=== PATIENT | female | born 1945 | race Caucasian/White ===

== ENCOUNTER 2020-10-06 06:58 | Outpatient (REF) | payer MEDICARE, SELFPAY ==
[2020-10-06 11:49] LABS: Hematocrit 44.3 % (37-47); Hemoglobin 14.4 g/dl (12.0-16.0); Mean Corpuscular HGB Conc 32.5 g/dl (31.0-35.0); Mean Corpuscular Hemoglobin 29.9 pg (27.0-33.0); Mean Corpuscular Volume 92.1 fL (80-98); Mean Platelet Volume 9.1 fL (9.4-12.3); Platelet Count 244 X10*3/uL (160-400); Red Blood Count 4.81 X10*6/uL (4.20-5.50); Red Cell Distribution Width 12.6 % (11.0-16.0)
[2020-10-06 12:20] LABS: Alanine Aminotransferase 9 U/L (0-31); Alkaline Phosphatase 82 U/L (39-117); Anion Gap 13 (12-20); Aspartate Amino Transferase 12 U/L (5-31); Bilirubin Total 0.4 mg/dL (0.0-1.0); Blood Urea Nitrogen 15 mg/dL (9-16); Calcium 8.9 mg/dL (8.4-10.2); Carbon Dioxide 30 mmol/L (22-29); Chloride 105 mmol/L (96-108); Estimated Glomerular Filt Rate > 60; Glucose Fasting 92 mg/dL (60-99); Potassium 4.5 mmol/l (3.3-5.1); Sodium 143 mmol/L (135-145); Total Protein 6.3 g/dL (6.5-8.0)
[2020-10-06 12:29] LABS: Thyroid Stimulating Hormone 0.38 uIU/mL (0.32-4.0)
[2020-10-06 12:41] LABS: Cholesterol 216 mg/dL; HDL Cholesterol 85 mg/dL; LDL Cholesterol Calculated 111 mg/dl; Triglycerides 101 mg/dL
== END 2020-10-06 06:59 | disposition home or self-care (01) ==
LOC: HO.HMGCLDS 06:58
PROVIDERS: PCP Internal Medicine; Visit Provider Internal Medicine
DX: I63.9 Cerebral infarction, unspecified (principal); E78.5 Hyperlipidemia, unspecified; H35.30 Unspecified macular degeneration
CPT/HCPCS: 36415; 80053; 80061; 84443; 85027

== ENCOUNTER → 2020-10-29 11:34 | Outpatient (BNVA) | payer MEDICARE, SELFPAY | PROVIDERS: PCP Internal Medicine; Referring Provider Internal Medicine; Visit Provider Student in an Organized Health Care Education/Training Program | DX: M25.50 Pain in unspecified joint (principal); T85.192A Other mechanical complication of implanted electronic neurostimulator of spinal cord electrode (lead), initial encounter | CPT/HCPCS: Q3014 ==

== ENCOUNTER 2020-12-19 07:35 | Outpatient (REF) | payer MEDICARE, SELFPAY ==
[2020-12-19 11:45] LABS: Hematocrit 43.1 % (37-47); Mean Corpuscular HGB Conc 32.5 g/dl (31.0-35.0); Mean Corpuscular Hemoglobin 29.7 pg (27.0-33.0); Mean Corpuscular Volume 91.3 fL (80-98); Mean Platelet Volume 9.5 fL (9.4-12.3); Platelet Count 260 X10*3/uL (160-400); Red Blood Count 4.72 X10*6/uL (4.20-5.50); Red Cell Distribution Width 12.6 % (11.0-16.0); White Blood Count 4.7 X10*3/uL (4.8-10.8)
[2020-12-19 11:46] LABS: Prothrombin Time 11.3 SEC (10.8-13.0)
[2020-12-19 11:49] LABS: Partial Thromboplastin Time 36.1 SEC (24.1-38.0)
[2020-12-19 11:53] LABS: Anion Gap 12 (12-20); Blood Urea Nitrogen 14 mg/dL (9-16); Carbon Dioxide 30 mmol/L (22-29); Chloride 106 mmol/L (96-108); Estimated Glomerular Filt Rate > 60; Glucose Random 102 mg/dL (60-115); Potassium 4.3 mmol/l (3.3-5.1); Sodium 144 mmol/L (135-145)
== END 2020-12-19 07:36 | disposition home or self-care (01) ==
LOC: HO.HMGCLDS 07:35
PROVIDERS: PCP Internal Medicine; Visit Provider Internal Medicine
DX: T85.192A Other mechanical complication of implanted electronic neurostimulator of spinal cord electrode (lead), initial encounter (principal)
CPT/HCPCS: 36415; 80048; 85027; 85610; 85730

== ENCOUNTER → 2021-01-19 07:44 | Outpatient (BNVA) | payer MEDICARE, SELFPAY | PROVIDERS: PCP Internal Medicine; Visit Provider Physician Assistant | CPT/HCPCS: Q3014 ==

== ENCOUNTER 2021-02-19 09:51 | Day surgery (SDC) | payer MEDICARE, SELFPAY ==
[2021-02-13 11:06] VITALS: BMI 23.8
--- NOTE | 2021-02-18 11:47 | P.CONAN_ITS ---
Documented by User: Marlena Jin 02/18/21 11:54 HPI - Anesthesia Eval Consult details Narrative: 75yo F for Colonoscopy PMFSH Active Problems Active Problems: All Active Problems (Updated 02/13/21 @ 11:09 by Milena Andrews) Polyarthralgia (Acute) Spinal cord stimulator dysfunction (Acute) Current use of jail anticoagulation (Acute) Chronic constipation (Acute) Rectal bleed (Acute) CVA (cerebral vascular accident) (Acute) Hyperlipidemia (Acute) Macular degeneration (Acute) Eye exam abnormal (Acute) Past Medical History Medical History (Updated 02/19/21 @ 11:18 by Norma Mark) Chronic constipation COPD (chronic obstructive pulmonary disease) COVID-19 vaccine administered CVA (cerebral vascular accident) Eye exam abnormal Goiter, nodular History of hiatal hernia Hyperlipidemia Macular degeneration Microscopic hematuria Nephrolithiasis Osteopenia Rectal bleed Spinal stenosis Upper extremity weakness Family History Family History Father History of heart attack Stroke Mother Stroke Diabetes mellitus Maternal Grandmother Diabetes mellitus Maternal Grandfather Diabetes mellitus Surgical History Surgical History H/O colonoscopy History of bladder suspension procedure History of hysterectomy History of repair of hiatal hernia Hx of cholecystectomy S/P insertion of spinal cord stimulator Social History Social History Household Members: Sp[facility] Are you a primary care trainer to a significant other at home: No Do you presently have visiting nurse or other home services: No Alcohol intake: never Smoking Status: Former smoker Tobacco Type: Cigarette Smoking Quit Date: 1985 Use of substances other than those prescribed or required for medical reasons: No Have you been hit, kicked, punched, or otherwise hurt by someone within the past year? If so, by whom?: No Advance Directives Information Provided: No Recently lost weight without trying: No Current occupational status: retired Meds Allergies Allergy/AdvReac Type Severity Reaction Status Date / Time acetaminophen [From Tylenol] Allergy Severe ANAPHYLAXIS Verified 02/13/21 11:13 gabapentin [GABAPENTIN] Allergy Severe ANAPHYLAXIS Verified 01/19/21 07:45 levofloxacin [From Levaquin] Allergy Severe ANAPHYLAXIS Verified 02/13/21 11:13 Penicillins Allergy Severe ANAPHYLAXIS Verified 02/13/21 11:13 tetracycline [Tetracycline] Allergy Severe ANAPHYLAXIS Verified 02/13/21 11:13 vancomycin [Vancomycin] AdvReac Severe Anaphylaxis Verified 01/19/21 07:45 Home Medications Medication Instructions Recorded Confirmed Last Taken Type flu vacc (63yr IM 10/03/20 01/19/21 Unknown History up)-MF59C(PF) 60 mcg(15 mcgx4)/0.5 mL IM syringe prednisolone acetate 1 % eye drp OPHTHALMIC (EYE) 10/03/20 01/19/21 Unknown History drops,suspension mexiletine 150 mg PO BID 02/13/21 02/13/21 Unknown History Exam Exam Date and Time: February 18, 2021 1147 Height,Weight and Vital Signs: Height 5 ft 2 in Weight 58.967 kg Pertinent Lab Results Pertinent Lab Results: Laboratory Tests 12/19/20 12/19/20 07:40 07:40 WBC 4.7 L Hgb 14.0 Hct 43.1 Plt Count 260 Sodium 144 Potassium 4.3 Chloride 106 Carbon Dioxide 30 H BUN 14 Creatinine 0.68 Assessment and Plan Assessment Anesthesia Assessment: Chart Reviewed Documented by User: Norma Mark 02/19/21 11:57 PMFSH Past Medical History Medical History (Updated 02/19/21 @ 11:18 by Norma Mark) Chronic constipation COPD (chronic obstructive pulmonary disease) COVID-19 vaccine administered CVA (cerebral vascular accident) Eye exam abnormal Goiter, nodular History of hiatal hernia Hyperlipidemia Macular degeneration Microscopic hematuria Nephrolithiasis Osteopenia Rectal bleed Spinal stenosis Upper extremity weakness Family History Family History Father History of heart attack Stroke Mother Stroke Diabetes mellitus Maternal Grandmother Diabetes mellitus Maternal Grandfather Diabetes mellitus Family history of problems with anesthesia: No Surgical History Surgical History H/O colonoscopy History of bladder suspension procedure History of hysterectomy History of repair of hiatal hernia Hx of cholecystectomy S/P insertion of spinal cord stimulator History of Problems with Anesthesia: No Social History Social History Household Members: [facility] Are you a primary care trainer to a significant other at home: No Do you presently have visiting nurse or other home services: No Alcohol intake: never Smoking Status: Former smoker Tobacco Type: Cigarette Smoking Quit Date: 1985 Use of substances other than those prescribed or required for medical reasons: No Have you been hit, kicked, punched, or otherwise hurt by someone within the past year? If so, by whom?: No Advance Directives Information Provided: No Recently lost weight without trying: No Current occupational status: retired Meds Allergies Allergy/AdvReac Type Severity Reaction Status Date / Time acetaminophen [From Tylenol] Allergy Severe ANAPHYLAXIS Verified 02/13/21 11:13 gabapentin [GABAPENTIN] Allergy Severe ANAPHYLAXIS Verified 01/19/21 07:45 levofloxacin [From Levaquin] Allergy Severe ANAPHYLAXIS Verified 02/13/21 11:13 Penicillins Allergy Severe ANAPHYLAXIS Verified 02/13/21 11:13 tetracycline [Tetracycline] Allergy Severe ANAPHYLAXIS Verified 02/13/21 11:13 vancomycin [Vancomycin] AdvReac Severe Anaphylaxis Verified 01/19/21 07:45 Home Medications Medication Instructions Recorded Confirmed Last Taken Type flu vacc (63yr IM 10/03/20 01/19/21 Unknown History up)-MF59C(PF) 60 mcg(15 mcgx4)/0.5 mL IM syringe prednisolone acetate 1 % eye drp OPHTHALMIC (EYE) 10/03/20 01/19/21 Unknown History drops,suspension mexiletine 150 mg PO BID 02/13/21 02/13/21 Unknown History Exam Height,Weight and Vital Signs: Vital Signs Temp Pulse Resp BP Pulse Ox 02/19/21 10:57 97.7 F 73 16 147/72 H 99 Airway Mallampati Class: I TM Dist: >3cm Neck ROM: Limited (Stiffness) Denture: Upper Loose/Missing/Broken Teeth: Yes (Only few teeth bottom) Heart: RRR Lungs: CTAB Assessment and Plan Assessment Anesthesia Assessment: Anesthesia Plan Discussed and Chart Reviewed Final Anesthetic Review NPO: Yes ASA Class: III Final Preanesthetic Review: No Changes in Pt Med Stat, Meds/Allgs Chart Reviewed, Consent Obtained/Reviewed and Anes Risks/Benef Reviewed Patient Risk: Intermediate Procedure Risk: Low Assessment/Block/Sedation in SS: Assess/Block/Sedation-SS Anesthetic Plan Anesthetic Plan: MAC: Disposition: Standard PACU
[2021-02-19 10:57] VITALS: BP 147/72; PULSE 73; RESP 16; TEMP 36.5; O2SAT 99
[2021-02-19] MEDS: Lactated Ringers 1,000 ML 100 ML IVCONT (11:02)
--- NOTE | 2021-02-19 11:31 | MHC.SHP ---
Pre-Procedural Eval Section B Chief Complaint: bleeding Details of Present Illness: Rectal bleeding, constipation (?rectocoele) Relevant Family History (Specify if Yes): No Relevant Social History: None Present Medications: see Short Stay Collaborative assessment Medical History: Significant History (CVA, Nodular goiter, Spinal stenosis) History of Previous Operations: Relevant previous surgery/procedure and date(s) (Hysterectomy, cholecystectomy, bladder suspension, colo's polyps) Allergies: Allergies Allergy/AdvReac Type Severity Reaction Status Date / Time acetaminophen [From Tylenol] Allergy Severe ANAPHYLAXIS Verified 02/13/21 11:13 gabapentin [GABAPENTIN] Allergy Severe ANAPHYLAXIS Verified 01/19/21 07:45 levofloxacin [From Levaquin] Allergy Severe ANAPHYLAXIS Verified 02/13/21 11:13 Penicillins Allergy Severe ANAPHYLAXIS Verified 02/13/21 11:13 tetracycline [Tetracycline] Allergy Severe ANAPHYLAXIS Verified 02/13/21 11:13 vancomycin [Vancomycin] AdvReac Severe Anaphylaxis Verified 01/19/21 07:45 Review of Systems Sugical H&P ROS: Negative: Constitution, Cardiovascular, Respiratory and Gastrointestinal and Yes, Specify: Neurological (HX of CVA) Exam Surgical H&P Exam: Normal: Heart, Normal: Lungs, Normal: Extremities and Normal: Abdomen, Not Evaluated: HEENT and Significant Findings: Neurological (right arm full ROM, equal temp) Plan Diagnosis/Plan: Unchanged I have reviewed the history and physical and performed a pertinent physical examination on my patient. No changes have occurred unless specified.yes
[2021-02-19 12:05] VITALS: BP 103/59; PULSE 67; RESP 16; TEMP 36.4; O2SAT 96
--- NOTE | 2021-02-19 12:06 | PM.OP ---
Brief Operative Note Date of Service: 02/19/21 Pre-op diagnosis: Rectal bleeding,colon cancer screening Post-op diagnosis: other (Rectocoele, Internal hemorrhoids, Diverticulosis.) Procedure: COLONOSCOPY Implants: NONE Surgeon: Savannah Torres MD Anesthesia: MAC (HORACIO MARTINO) Estimated blood loss (mL): 0 Pathology: none sent Disposition: PACU
[2021-02-19 12:20] VITALS: BP 107/50; PULSE 58; RESP 17; O2SAT 99
[2021-02-19 12:35] VITALS: BP 120/57; PULSE 56; RESP 17; TEMP 36.4; O2SAT 100
--- NOTE | 2021-02-19 13:20 | W.PM.OPN ---
Operative Note Operative Note Date of Service: 02/19/21 Narrative: Pre-op diagnosis: Rectal bleeding,colon cancer screening Post-op diagnosis: other (Rectocoele, Internal hemorrhoids, Diverticulosis.) Procedure: COLONOSCOPY Implants: NONE Surgeon: Savannah Torres MD Anesthesia: MAC (HORACIO MARTINO) FINDINGS: BARBARA: DECREASED SPHINCTER TONE;RECTOCOELE Adult slim colonoscope introduced without difficulty. Angulation@ rectosigmoid with some divertculi--made for slow movement thru this area and rest of sigmoid. Further navigation through descending, transverse, ascending colon into the cecum. Appendiceal orifice and ileocecal valve was well seen-no mucosal abnormalities were appreciated. PREP: Excellent Slow withdrawal of scope, good rotational views. no significant lesions seen. ARV clear. 1+Internal hemorrhoids were noted. Estimated blood loss (mL): 0 Pathology: none sent Disposition: PACU PLAN: Repeat asymptomatic screening in this age range is debatable. She would benefit from followup visit to review management options for her rectocoele. (I had discussed this with her briefly preprocedure.)
== END 2021-02-19 13:19 | disposition home or self-care (01) ==
PROVIDERS: PCP Internal Medicine; Visit Provider Internal Medicine Gastroenterology
PROC: 0DJD8ZZ Inspection of Lower Intestinal Tract, Via Natural or Artificial Opening Endoscopic (ICD-10-PCS; CPT 45378; principal; 2021-02-19 11:10)
DX: K62.5 Hemorrhage of anus and rectum (principal); N81.6 Rectocele; K57.30 Diverticulosis of large intestine without perforation or abscess without bleeding; K64.8 Other hemorrhoids; K62.89 Other specified diseases of anus and rectum; K59.09 Other constipation; Z79.899 Other long term (current) drug therapy; Z86.73 Personal history of transient ischemic attack (TIA), and cerebral infarction without residual deficits; Z88.0 Allergy status to penicillin; Z88.1 Allergy status to other antibiotic agents; Z88.8 Allergy status to other drugs, medicaments and biological substances
CPT/HCPCS: 45378

== ENCOUNTER 2021-02-26 14:40 | Outpatient (REF) | payer MEDICARE, SELFPAY ==
--- NOTE | ~2021-02-26 | CT_ITS ---
EXAMINATION: CT HEAD WITHOUT CONTRAST CLINICAL INFORMATION: Transient cerebral ischemic attack. COMPARISON: CT dated 10/12/2019. TECHNIQUE: Contiguous axial imaging was performed from the skull base to vertex without intravenous administration of contrast. This CT examination was performed using dose optimization techniques as appropriate, variously including the following: *Automated exposure control *Adjustment of mA and/or kV according to patient size (this includes techniques or standardized protocols for targeted exams where dose is matched to indication/reason for exam; i.e. extremities or head) *Use of iterative reconstruction technique DLP: 558 mGy-cm FINDINGS: There is no evidence of acute intracranial hemorrhage or territorial infarction. No abnormal mass effect or midline shift is seen. Clifford to white matter differentiation is well preserved. No extra-axial fluid collections are identified. The ventricles are normal in size. There is no abnormal attenuation within the brain parenchyma. The osseous structures and soft tissues are normal. The mastoid air cells and visualized portions of the paranasal sinuses are well aerated. CT/CT head/brain wo con IMPRESSION: No acute intracranial pathology.
--- NOTE | ~2021-02-26 | US_ITS ---
EXAMINATION: US EXTRACRANIAL CAROTID DUPLEX, BILATERAL CLINICAL INFORMATION: TIA. COMPARISON: None. TECHNIQUE: Real-time ultrasound and Doppler techniques (integrating B-mode 2-D vascular images, Doppler spectral analysis and color-flow Doppler imaging) were utilized to interrogate the extracranial carotid arteries, the vertebral arteries and proximal subclavian arteries bilaterally. The degree of stenosis is determined by criteria similar to NASCET. FINDINGS: Right Side: 1. There is hard atherosclerotic plaque seen in the bifurcation/proximal ICA region. 2. The common carotid artery PSV proximally is 91.5 cm/s and distally 67.6 cm/s. 3. The proximal internal carotid artery velocities are 62.5 cm/s systolic and 11.8 cm/s diastolic. 4. The proximal external carotid artery PSV is 70.9 cm/s. 5. The vertebral artery shows 55 flow. 6. The subclavian artery waveforms are normal. Left Side: 1. There is hard atherosclerotic plaque seen in the bifurcation/proximal ICA region. 2. The common carotid artery PSV proximally is 79 cm/s and distally 67.2 cm/s. 3. The proximal internal carotid artery velocities are 72.7 cm/s systolic and 14.5 cm/s diastolic. 4. The proximal external carotid artery PSV is 72.3 cm/s. 5. The vertebral artery shows 49.1 flow. 6. The subclavian artery waveforms are normal. US/US carotid duplex BI IMPRESSION: 1. RIGHT: 0-49% range stenosis. 2. LEFT: 0-49% range stenosis. 3. Normal antegrade flow is seen in both vertebral arteries.
== END 2021-02-26 14:41 | disposition home or self-care (01) ==
LOC: HO.CT 14:40
PROVIDERS: Visit Provider Internal Medicine
DX: G45.9 Transient cerebral ischemic attack, unspecified (principal)
CPT/HCPCS: 70450; 93880; Q3014

== ENCOUNTER 2021-06-03 08:36 | Outpatient (REF) | payer MEDICARE, SELFPAY ==
[2021-06-03 12:04] LABS: Hematocrit 43.7 % (37-47); Hemoglobin 14.6 g/dl (12.0-16.0); Mean Corpuscular HGB Conc 33.4 g/dl (31.0-35.0); Mean Corpuscular Hemoglobin 30.4 pg (27.0-33.0); Mean Corpuscular Volume 90.9 fL (80-98); Mean Platelet Volume 9.2 fL (9.4-12.3); Platelet Count 249 X10*3/uL (160-400); Red Blood Count 4.81 X10*6/uL (4.20-5.50); Red Cell Distribution Width 12.5 % (11.0-16.0)
[2021-06-03 12:21] LABS: Alanine Aminotransferase 9 U/L (0-31); Albumin Level 4.2 g/dL (3.5-5.0); Alkaline Phosphatase 91 U/L (39-117); Anion Gap 14 (12-20); Aspartate Amino Transferase 13 U/L (5-31); Bilirubin Total 0.3 mg/dL (0.0-1.0); Blood Urea Nitrogen 11 mg/dL (9-16); Calcium 9.8 mg/dL (8.4-10.2); Carbon Dioxide 27 mmol/L (22-29); Chloride 105 mmol/L (96-108); Cholesterol 225 mg/dL; Estimated Glomerular Filt Rate > 60; Glucose Fasting 118 mg/dL (60-99); HDL Cholesterol 92 mg/dL; LDL Cholesterol Calculated 114 mg/dl; Potassium 4.4 mmol/L (3.3-5.1); Sodium 142 mmol/L (135-145); Total Protein 6.6 g/dL (6.5-8.0); Triglycerides 96 mg/dL
== END 2021-06-03 08:37 | disposition home or self-care (01) ==
LOC: HO.HMGCLDS 08:36
PROVIDERS: PCP Internal Medicine; Visit Provider Internal Medicine
DX: E78.5 Hyperlipidemia, unspecified (principal)
CPT/HCPCS: 36415; 80053; 80061; 85027

== ENCOUNTER 2021-07-17 07:44 | Outpatient (REF) | payer MEDICARE, SELFPAY ==
--- NOTE | ~2021-07-17 | MM_ITS ---
EXAMINATION: MM SCREENING DIGITAL BREAST TOMOSYNTHESIS, BILATERAL CLINICAL INFORMATION: Screening. Asymptomatic. The lifetime risk of breast cancer based on the Tyrer-Cuzick Model is 3%. COMPARISON: Mammography: 07/11/2020, outside mammography from [facility] dated 12/28/2017, 12/23/2016. TECHNIQUE: Digital breast tomosynthesis is performed in both the craniocaudal and mediolateral oblique views along with computer-aided detection (CAD). Synthesized 2D images are generated from the tomosynthesis. Additional bilateral CC views are provided. FINDINGS: The breasts are almost entirely fatty (ACR BI-RADS breast composition Category a). There are no significant masses, abnormal calcifications, or other abnormalities. Background stromal markings are stable. No developing density. The axilla and skin contours are unremarkable. MM/MM tomosynthesis screening BI IMPRESSION: No mammographic evidence of malignancy. ASSESSMENT: BI-RADS 1: Negative RECOMMENDATION: Routine annual mammography screening. This patient's information was entered into a reminder system with a target due date for their next mammogram.
== END 2021-07-17 07:45 | disposition home or self-care (01) ==
LOC: HO.MAMMO 07:44
PROVIDERS: PCP Internal Medicine; Visit Provider Internal Medicine
DX: Z12.31 Encounter for screening mammogram for malignant neoplasm of breast (principal)
CPT/HCPCS: 77063; 77067

== ENCOUNTER 2021-09-03 06:27 | Outpatient (REF) | payer MEDICARE, SELFPAY ==
[2021-09-03 12:19] LABS: Alanine Aminotransferase 13 U/L (0-31); Albumin Level 3.9 g/dL (3.5-5.0); Alkaline Phosphatase 96 U/L (39-117); Anion Gap 12 (12-20); Aspartate Amino Transferase 13 U/L (5-31); Bilirubin Total < 0.2 mg/dL (0.0-1.0); Blood Urea Nitrogen 17 mg/dL (9-16); Calcium 9.2 mg/dL (8.4-10.2); Carbon Dioxide 27 mmol/L (22-29); Chloride 108 mmol/L (96-108); Cholesterol 153 mg/dL; Estimated Glomerular Filt Rate > 60; Glucose Fasting 110 mg/dL (60-99); HDL Cholesterol 71 mg/dL; LDL Cholesterol Calculated 70 mg/dl; Potassium 4.2 mmol/L (3.3-5.1); Sodium 143 mmol/L (135-145); Total Protein 5.9 g/dL (6.5-8.0); Triglycerides 60 mg/dL
== END 2021-09-03 06:28 | disposition home or self-care (01) ==
LOC: HO.HMGCLDS 06:27
PROVIDERS: PCP Internal Medicine; Visit Provider Internal Medicine
DX: E78.5 Hyperlipidemia, unspecified (principal); M25.50 Pain in unspecified joint
CPT/HCPCS: 36415; 80053; 80061

== ENCOUNTER 2022-02-03 10:47 | Outpatient (REF) | payer MEDICARE, SELFPAY ==
[2022-02-03 11:53] LABS: Estimated Average Glucose 120 mg/dL; Hemoglobin A1c % 5.8 %
[2022-02-03 12:15] LABS: Alanine Aminotransferase 13 U/L (0-31); Albumin Level 4.2 g/dL (3.5-5.0); Alkaline Phosphatase 92 U/L (39-117); Anion Gap 13 (12-20); Aspartate Amino Transferase 13 U/L (5-31); Bilirubin Total 0.5 mg/dL (0.0-1.0); Blood Urea Nitrogen 15 mg/dL (9-16); Calcium 9.9 mg/dL (8.4-10.2); Carbon Dioxide 28 mmol/L (22-29); Chloride 107 mmol/L (96-108); Cholesterol 172 mg/dL; Estimated Glomerular Filt Rate > 60; Glucose Fasting 92 mg/dL (60-99); HDL Cholesterol 81 mg/dL; LDL Cholesterol Calculated 79 mg/dl; Potassium 4.5 mmol/L (3.3-5.1); Sodium 143 mmol/L (135-145); Total Protein 6.4 g/dL (6.5-8.0); Triglycerides 62 mg/dL
[2022-02-03 12:29] LABS: Vitamin D 25-OH Total 14.3 ng/mL (>30)
== END 2022-02-03 10:48 | disposition home or self-care (01) ==
LOC: HO.HMGCLDS 10:47
PROVIDERS: Visit Provider Internal Medicine
DX: E78.5 Hyperlipidemia, unspecified (principal); E55.9 Vitamin D deficiency, unspecified
CPT/HCPCS: 36415; 80053; 80061; 82306; 83036

== ENCOUNTER 2022-03-10 08:20 | Outpatient (REF) | payer MEDICARE, SELFPAY ==
--- NOTE | ~2022-03-10 | MM_ITS ---
EXAMINATION: BONE DENSITOMETRY CLINICAL INDICATION: Menopause. COMPARISON: Baseline BD dated 05/25/2011. TECHNIQUE: Using a Dick [employer] DXA System (software version: 13.1) manufactured by [employer], dual-energy x-ray absorptiometry was performed of the lumbar spine and left hip. The images are of good technical quality. Summary results are attached. FINDINGS: AP SPINE L1-L4: Current: BMD 1.087 g/cm2, Z-score 1.3, T-score -0.8, normal, 3.1% increase from baseline (<5% change is not significant). Baseline: BMD 1.054 g/cm2. LEFT FEMUR, NECK: Current: BMD 0.666 g/cm2, Z-score -0.4, T-score -2.7, osteoporosis. Baseline: BMD 0.807 g/cm2. LEFT FEMUR, TOTAL: Current: BMD 0.588 g/cm2, Z-score -1.2, T-score -3.3, osteoporosis, 27.2% decrease from baseline (<5% change is not significant). Baseline: BMD 0.808 g/cm2. IDENTIFIED RISK FACTORS: Menopause, history of fracture (adult), rheumatoid arthritis, hysterectomy. HISTORY OF FRACTURE: Wrist. MEDICATIONS: None listed. MM/XR DEXA axial skeleton IMPRESSION: 1. DIAGNOSIS: Osteoporosis based on the lowest T-score value of -3.3 in the femur applying World Health Organization criteria. 2. 10-YEAR FRACTURE RISK PREDICTION, FRAX: According to the guidelines, FRAX calculation should only be performed on patients in the osteopenia bone density category. Therefore, FRAX was not performed on this patient. 3. Treatment Recommendations: NOF guidelines recommend consideration for treatment in postmenopausal women and men age 50 and older presenting with the following: -A hip or vertebral (clinical or morphometric) fracture. -T-score less than or equal to -2.5 at the femoral neck or spine after appropriate evaluation to exclude secondary causes. -Low bone mass at the hip or spine and a 10-year fracture probability by FRAX of greater than or equal to 3% for hip fracture or greater than or equal to 20% for major osteoporotic fracture based on the [place] adapted WHO algorithm. 4. Other Recommendations: All treatment decisions require clinical judgment and consideration of individual patient factors, including patient preferences, comorbidities, previous drug use, risk factors not captured in the FRAX model (e.g. frailty, falls, vitamin D deficiency, increased bone turnover, interval significant decline in bone density) and possible under or overestimation of fracture risk by FRAX. Additional medical evaluation for secondary cause of low bone mineral density may be appropriate. FUTURE SCAN RECOMMENDATION: People with diagnosed cases of osteoporosis or at high risk for fracture should have regular bone mineral density tests. For patients eligible for Medicare, routine testing is allowed once every 2 years. The testing frequency can be increased to one year for patients who have rapidly progressing disease, those who are receiving or discontinuing medical therapy to restore bone mass, or have additional risk factors.
== END 2022-03-10 08:21 | disposition home or self-care (01) ==
LOC: HO.MAMMO 08:20
PROVIDERS: PCP Internal Medicine; Visit Provider Internal Medicine
DX: Z13.820 Encounter for screening for osteoporosis (principal); Z78.0 Asymptomatic menopausal state; M81.0 Age-related osteoporosis without current pathological fracture
CPT/HCPCS: 77080; 77081

== ENCOUNTER 2022-06-24 12:28 | Outpatient (REF) | payer MEDICARE, SELFPAY | END 2022-06-24 12:29 | disposition home or self-care (01) | LOC: HO.HMGCLDS 12:28 | PROVIDERS: Visit Provider Internal Medicine | DX: Z13.89 Encounter for screening for other disorder (principal) ==

== ENCOUNTER 2022-07-21 07:17 | Outpatient (REF) | payer MEDICARE, SELFPAY ==
--- NOTE | ~2022-07-21 | MM_ITS ---
EXAMINATION: MM SCREENING DIGITAL BREAST TOMOSYNTHESIS, BILATERAL CLINICAL INFORMATION: Screening. Asymptomatic. The lifetime risk of breast cancer based on the Tyrer-Cuzick Model is 1.3%. COMPARISON: Mammography: July 17, 2021 and studies dating back to July 06, 2011 TECHNIQUE: Digital breast tomosynthesis is performed in both the craniocaudal and mediolateral oblique views along with computer-aided detection (CAD). Synthesized 2D images are generated from the tomosynthesis. FINDINGS: The breasts are almost entirely fatty (ACR BI-RADS breast composition Category a). There are no significant masses, abnormal calcifications, or other abnormalities. MM/MM tomosynthesis screening BI IMPRESSION: No significant changes from prior exam. ASSESSMENT: BI-RADS 1: Negative RECOMMENDATION: Routine annual mammography screening. This patient's information was entered into a reminder system with a target due date for their next mammogram.
== END 2022-07-21 07:18 | disposition home or self-care (01) ==
LOC: HO.MAMMO 07:17
PROVIDERS: Visit Provider Internal Medicine
DX: Z12.31 Encounter for screening mammogram for malignant neoplasm of breast (principal)
CPT/HCPCS: 77063; 77067

== ENCOUNTER 2022-08-03 09:47 | Outpatient (REF) | payer MEDICARE, SELFPAY ==
[2022-08-03 11:38] LABS: Hematocrit 41.5 % (37.0-47.0); Hemoglobin 13.7 g/dl (12.0-16.0); Mean Corpuscular Volume 90.8 fL (80.0-98.0); Mean Platelet Volume 9.3 fL (9.4-12.3); Platelet Count 241 X10*3/uL (160-400); Red Blood Count 4.57 X10*6/uL (4.20-5.50); Red Cell Distribution Width 12.5 % (11.0-16.0); White Blood Count 6.1 X10*3/uL (4.8-10.8)
[2022-08-03 11:47] LABS: Estimated Average Glucose 120 mg/dL; Hemoglobin A1c % 5.8 %
[2022-08-03 12:21] LABS: Alanine Aminotransferase 11 U/L (0-31); Alkaline Phosphatase 89 U/L (39-117); Anion Gap 18 (12-20); Aspartate Amino Transferase 13 U/L (5-31); Bilirubin Total 0.3 mg/dL (0.0-1.0); Blood Urea Nitrogen 16 mg/dL (9-16); Calcium 9.2 mg/dL (8.4-10.2); Carbon Dioxide 24 mmol/L (22-29); Chloride 105 mmol/L (96-108); Cholesterol 206 mg/dL; Estimated Glomerular Filt Rate > 60; Glucose Fasting 154 mg/dL (60-99); HDL Cholesterol 87 mg/dL; LDL Cholesterol Calculated 102 mg/dl; Potassium 4.7 mmol/L (3.3-5.1); Sodium 142 mmol/L (135-145); Total Protein 6.4 g/dL (6.5-8.0); Triglycerides 88 mg/dL
[2022-08-03 12:39] LABS: Vitamin D 25-OH Total 31.1 ng/mL (>30)
== END 2022-08-03 09:48 | disposition home or self-care (01) ==
LOC: HO.HMGCLDS 09:47
PROVIDERS: PCP Internal Medicine; Visit Provider Internal Medicine
DX: E78.5 Hyperlipidemia, unspecified (principal); R73.9 Hyperglycemia, unspecified; E55.9 Vitamin D deficiency, unspecified
CPT/HCPCS: 36415; 80053; 80061; 82306; 83036; 85027

== ENCOUNTER 2023-02-24 10:04 | Outpatient (REF) | payer MEDICARE, SELFPAY ==
[2023-02-24 11:29] LABS: Estimated Average Glucose 126 mg/dL
[2023-02-24 12:24] LABS: Alanine Aminotransferase 10 U/L (0-31); Alkaline Phosphatase 100 U/L (39-117); Anion Gap 10 (12-20); Aspartate Amino Transferase 12 U/L (5-31); Bilirubin Total 0.5 mg/dL (0.0-1.0); Blood Urea Nitrogen 14 mg/dL (9-16); Calcium 9.3 mg/dL (8.4-10.2); Carbon Dioxide 31 mmol/L (22-29); Chloride 106 mmol/L (96-108); Cholesterol 227 mg/dL; Estimated Glomerular Filt Rate > 60; Glucose Fasting 106 mg/dL (60-99); HDL Cholesterol 84 mg/dL; LDL Cholesterol Calculated 125 mg/dl; Potassium 4.6 mmol/L (3.3-5.1); Sodium 142 mmol/L (135-145); Total Protein 6.2 g/dL (6.5-8.0); Triglycerides 92 mg/dL
[2023-02-24 12:32] LABS: TSH reflex Free T4 0.39 uIU/mL (0.32-4.0); Vitamin D 25-OH Total 31.7 ng/mL (>30)
== END 2023-02-24 10:05 | disposition home or self-care (01) ==
LOC: HO.HMGCLDS 10:04
PROVIDERS: PCP Internal Medicine; Visit Provider Internal Medicine
DX: R73.9 Hyperglycemia, unspecified (principal); M81.0 Age-related osteoporosis without current pathological fracture; E78.5 Hyperlipidemia, unspecified; E55.9 Vitamin D deficiency, unspecified
CPT/HCPCS: 36415; 80053; 80061; 82306; 83036; 84443

== ENCOUNTER → 2023-03-22 09:55 | Outpatient (BNVA) | payer MEDICARE, SELFPAY | PROVIDERS: PCP Internal Medicine; Visit Provider Nurse Practitioner Family | DX: M81.0 Age-related osteoporosis without current pathological fracture (principal); M48.061 Spinal stenosis, lumbar region without neurogenic claudication; M48.50XA Collapsed vertebra, not elsewhere classified, site unspecified, initial encounter for fracture; M25.561 Pain in right knee; M96.1 Postlaminectomy syndrome, not elsewhere classified; Z96.89 Presence of other specified functional implants | CPT/HCPCS: 99202 ==

== ENCOUNTER 2023-04-20 05:57 | Outpatient (REF) | payer MEDICARE, SELFPAY | END 2023-04-20 05:58 | disposition home or self-care (01) | LOC: CF 05:57 | PROVIDERS: Visit Provider Internal Medicine | DX: M25.561 Pain in right knee (principal) | CPT/HCPCS: 64447; J2795 ==

== ENCOUNTER → 2023-04-27 15:43 | Outpatient (BNVA) | payer MEDICARE, SELFPAY | PROVIDERS: PCP Internal Medicine; Visit Provider Nurse Practitioner Family | DX: M48.061 Spinal stenosis, lumbar region without neurogenic claudication (principal); M25.561 Pain in right knee; M96.1 Postlaminectomy syndrome, not elsewhere classified; M81.0 Age-related osteoporosis without current pathological fracture; M48.50XA Collapsed vertebra, not elsewhere classified, site unspecified, initial encounter for fracture; Z96.89 Presence of other specified functional implants | CPT/HCPCS: 99212 ==

== ENCOUNTER 2023-06-24 09:36 | Outpatient (AMB) | payer MEDICARE, SELFPAY ==
--- NOTE | 2023-06-24 09:50 | A.OFFVIS_ITS ---
Intake Vital Signs 06/24/23 09:55 Height 5 ft 2 in BP 123/69 Blood Pressure Location Lt brachial Position Sitting Respiration 14 Pulse 93 Pulse Source Pulse Oximeter Intake Visit Reasons: Right Dx genicular NB Allergies acetaminophen [From Tylenol] Allergy (Severe, Verified 06/27/23 11:31) ANAPHYLAXIS gabapentin [GABAPENTIN] Allergy (Severe, Verified 06/27/23 11:31) ANAPHYLAXIS levofloxacin [From Levaquin] Allergy (Severe, Verified 06/27/23 11:31) ANAPHYLAXIS Penicillins Allergy (Severe, Verified 06/27/23 11:31) ANAPHYLAXIS tetracycline [Tetracycline] Allergy (Severe, Verified 06/27/23 11:31) ANAPHYLAXIS vancomycin [Vancomycin] Adverse Reaction (Severe, Verified 06/27/23 11:31) Anaphylaxis HPI Right Dx genicular NB HPI Details 78-year-old female presenting today for a right diagnostic genicular nerve block. Patient presents for scheduled procedure. Denies any recent cough, cold, infection, fever or other significant changes in medical history since last office visit. Past procedures: 04/20/23: Right adductor canal saphenous nerve block, ultrasound-guided: 90% pain relief for 24 hours. [facility] Medical History Chest pain Chronic constipation COPD (chronic obstructive pulmonary disease) COVID-19 vaccine administered CVA (cerebral vascular accident) Eye exam abnormal Goiter, nodular History of hiatal hernia Hyperglycemia Hyperlipidemia Knee pain, right Lumbar spinal stenosis Macular degeneration Microscopic hematuria Nephrolithiasis Osteopenia Osteoporosis Postmenopausal Rectal bleed Spinal stenosis TIA (transient ischemic attack) Upper extremity weakness Vitamin D deficiency Vitreous detachment of right eye Surgical History H/O colonoscopy History of bladder suspension procedure History of hysterectomy History of repair of hiatal hernia Hx of cholecystectomy S/P insertion of spinal cord stimulator Family History Father History of heart attack Stroke Mother Stroke Diabetes mellitus Maternal Grandmother Diabetes mellitus Maternal Grandfather Diabetes mellitus Social History Household Members: Spouse Housing: Condominium Are you a primary healthcare economics consultant to a significant other at home: No Do you presently have visiting nurse or other home services: No Alcohol intake: never Patient Tobacco Use Status: Former Tobacco user e-Cigarette/Vaping Use: Never Used Second Hand Smoke Exposure: No service: No Current occupational status: retired Current occupational exposures/hazards: No Cognitive needs: No Hearing needs: No Vision needs: No Review of Systems Const All systems reviewed & are unremarkable except as noted in HPI and below Physical Exam Vital Signs: Last Vital Signs Pulse 93 06/24/23 09:55 Resp 14 06/24/23 09:55 BP 123/69 06/24/23 09:55 General: Appears afebrile. Alert and oriented. Mood and affect appropriate. Follows and participates in conversation appropriately. Respiratory effort is unlabored. Able to transition from sit to stand unassisted. Ambulates with bilaterally normal heel strike and toe off. Office Procedures Nerve Block Details: Right Genicular Nerves, ultrasound guided - Superior medial, superior lateral, and inferior medial genicular nerve block After obtaining written consent, pre-procedure blood pressure and heart rate were stable and recorded in the nursing record. The patient was placed supine on the table. The area overlying the peripheral nerves was widely prepped with chloraprep and allowed to dry. Using ultrasound, the appropriate landmarks were identified. A 25 gauge 1.5 inch hypodermic needle was advanced under ultrasound guidance to the appropriate landmark of each peripheral nerve. Aspiration was negative for heme and synovial fluid. 2 cc of bupivacaine 0.5% was injected around each targeted nerve. The needle was removed, skin cleansed and a sterile bandage was applied. The patient tolerated the procedure well and no complications were encountered. Following the procedure the patient's vital signs were stable. The patient was discharged home in good condition with post-procedural instructions. Time Out: Immediately prior to the procedure, the following was verbally confirmed that there is a signed consent form and that the correct patient, planned procedure, site and side are consistent with documentation and that necessary equipment and/or blood products are available prior to the start of the case. Complications: none EBL: <5 cc 82318 - Geniculate (knee) Procedure code (CPT) selection complete Results Reviewed Results Reviewed: 06/24/23 09:00 Lidocaine HCl 2 % MPF [Xylocaine 2 % MPF] 5 ml .ROUTE .STK-MED ONE ROPivacaine HCl/PF 0.5% [Naropin 0.5%] 150 mg .ROUTE .STK-MED ONE No imaging is available for review. Assessment & Plan Assessment & Plan (1) Osteoarthritis of right knee: Code(s): M17.11 - Unilateral primary osteoarthritis, right knee Plan Patient is status post right diagnostic genicular nerve block, US guided. Patient tolerated procedure well and was discharged home in stable condition with discharge instructions. All questions were answered. We will follow-up in two weeks via telephone or in clinic to assess response to therapy. A follow-up appointment was made during today's visit. Scribed for Dr. Fonseca by Nasir Crane, medical office receptionist assistant, on 06/24/2023. I, Dr. Fonseca, have personally reviewed and agree with the information entered by the scribe. Coding Level of Care Code Procedure Only Diagnoses Osteoarthritis of right knee M17.11 CPT Codes Nerve Block - Nerve Block 8: 48282 - Geniculate (knee) ([id number])
[2023-06-24 09:55] VITALS: BP 123/69; PULSE 93; RESP 14
== END 2023-06-24 10:31 | disposition home or self-care (01) ==
PROVIDERS: PCP Internal Medicine; Visit Provider Internal Medicine
DX: M17.11 Unilateral primary osteoarthritis, right knee (principal)
CPT/HCPCS: 64450

== ENCOUNTER → 2023-06-24 09:36 | Outpatient (BNVA) | payer MEDICARE, SELFPAY | PROVIDERS: PCP Internal Medicine; Visit Provider Internal Medicine | DX: M17.11 Unilateral primary osteoarthritis, right knee (principal); M48.061 Spinal stenosis, lumbar region without neurogenic claudication; M81.0 Age-related osteoporosis without current pathological fracture; Z96.82 Presence of neurostimulator | CPT/HCPCS: 64450; J2795 ==

== ENCOUNTER 2023-06-27 11:25 | Outpatient (AMB) | payer MEDICARE, SELFPAY ==
[2023-06-27 11:27] VITALS: BP 111/66; PULSE 93; O2SAT 97; BMI 22.6
--- NOTE | 2023-06-27 11:27 | A.OFFVIS_ITS ---
Intake Vital Signs 06/27/23 11:27 Height 5 ft 2 in Weight 123 lb 8 oz BMI 22.6 BP 111/66 Blood Pressure Location Rt brachial Position Sitting Pulse 93 Pulse Source Pulse Oximeter Pulse Oximetry (%) 97 Oxygen Delivery Method Room Air Intake Visit Reasons: s/p right GNB Allergies acetaminophen [From Tylenol] Allergy (Severe, Verified 06/27/23 11:31) ANAPHYLAXIS gabapentin [GABAPENTIN] Allergy (Severe, Verified 06/27/23 11:31) ANAPHYLAXIS levofloxacin [From Levaquin] Allergy (Severe, Verified 06/27/23 11:31) ANAPHYLAXIS Penicillins Allergy (Severe, Verified 06/27/23 11:31) ANAPHYLAXIS tetracycline [Tetracycline] Allergy (Severe, Verified 06/27/23 11:31) ANAPHYLAXIS vancomycin [Vancomycin] Adverse Reaction (Severe, Verified 06/27/23 11:31) Anaphylaxis HPI HPI Comments History of Present Illness Details Patient presents today to assess response to Diagnostic Right Genicular nerve block at adductor canal on 06/19/[address] Fonseca. Patient reports 100% pain relief for 4-5 hours after procedure with significant improvement in her mobility, increase tolerance to climbing stairs, improved sleep, and better functionality. She reports this nerve block did not last as long as right SNB but is content that she had positive response. Patient reports bone on bone arthritis in her right knee and prefers orthopedic evaluation for potential right TRK at [facility] prior to moving forward with right genicular RFA. Anand landry reports receiving cortisone and gel knee injections through [facility] in the past that provided less than 2-3 months relief. Sprint PNS option was not an option for patient due to [employer]tr[employer] SCS in place for the past 30 years. She continues to use back brace and spinal cord stimulator for her back pain and states this provides her at least 50% pain relief. Denies any recent cough, cold, infection, fever or other significant changes in medical history since last office visit. Patient denies any bladder or bowel incontinence or saddle anesthesia. Past Procedures: 06/19/23: Diagnostic Right Genicular nerve block-100% pain relief for 4-5 hours 04/20/23: Diagnostic Right Saphenous nerve block at adductor canal-90% pain relief for 24 hours. PRIOR: Patient is a pleasant 77 years old female with history of osteoporosis, osteoarthritis, lumbar fusion, Medtronic lumbar SCS and recent lumbar compression fracture presents today for initial evaluation of acute mid to lower back pain. She presents in back support brace. Patient is already established previously with the neurosurgical office of Dr. Crockett who did previous revision of SCS (initially implanted 30 years ago per patient) and battery change in 2020 and has upcoming follow up on 04/13/23. Patient was seen in Urgent Care Clinic, PCP and more [place] [facility] after waking in severe pain on 02/27/23. Patient reports she was told that lumbar compression fracture was noted on previous imaging too. She reports was unbearable up until yesterday when she started wearing back brace. She rates her pain at 5/10 today and reports she is more steadier. Back pain is present with minimal flexion or extension and radiates to her right lower extremity in L4-L5 distribution with associated numbness, tingling and weakness. She has kyphosis and scoliosis. Denies any bladder or bowel incontinence or saddle anesthesia. Patient is prescribed tramadol limited amount which she finds partially helpful. She has significant allergies to Tylenol and gabapentin and avoids NSAIDs due to being on Plavix. Patient also reports right knee pain in medial aspect which increases with walking or climbing stairs. She has previously received gel injections twice that provided her 3-6 months pain relief and now has been recommended total knee replacement. Patient is interested to undergo diagnostic right saphenous nerve at adductor canal injection for potential Sprint PNS trial as she awaits for her acute back pain evaluation by neurosurgery. We also discussed genicular RFA as a back up option is she does not receive sustainable pain relief with PNS system. Location Lower back, RLE radiation; Right anterior knee pain in medial aspect Duration Chronic back pain, acute pain since 02/27/23-woke in severe pa in Characteristics of symptom or complaint Aching, throbbing, shooting, sharp, stabbing, radiating, tingling Aggravating or associated factors Movements, walking, standing, changing position, climbing stairs Relieving factors Sitting and not moving, back brace, tramadol Treatment Back brace, activity modification [facility] Medical History Chest pain Chronic constipation COPD (chronic obstructive pulmonary disease) COVID-19 vaccine administered CVA (cerebral vascular accident) Eye exam abnormal Goiter, nodular History of hiatal hernia Hyperglycemia Hyperlipidemia Knee pain, right Lumbar spinal stenosis Macular degeneration Microscopic hematuria Nephrolithiasis Osteopenia Osteoporosis Postmenopausal Rectal bleed Spinal stenosis TIA (transient ischemic attack) Upper extremity weakness Vitamin D deficiency Vitreous detachment of right eye Surgical History H/O colonoscopy History of bladder suspension procedure History of hysterectomy History of repair of hiatal hernia Hx of cholecystectomy S/P insertion of spinal cord stimulator Family History Father History of heart attack Stroke Mother Stroke Diabetes mellitus Maternal Grandmother Diabetes mellitus Maternal Grandfather Diabetes mellitus Social History Household Members: Spouse Housing: [facility] [place] Are you a primary adult live in caregiver to a significant other at home: No Do you presently have visiting nurse or other home services: No Alcohol intake: never Patient Tobacco Use Status: Former Tobacco user e-Cigarette/Vaping Use: Never Used Second Hand Smoke Exposure: No service: No Current occupational status: retired Current occupational exposures/hazards: No Cognitive needs: No Hearing needs: No Vision needs: No Review of Systems Const All systems reviewed & are unremarkable except as noted in HPI and below Physical Exam Vital Signs: Last Vital Signs Pulse 93 06/27/23 11:27 BP 111/66 06/27/23 11:27 Pulse Ox 97 06/27/23 11:27 Oxygen Delivery Method Room Air 06/27/23 11:27 BMI result Body Mass Index 22.6 General: Appears afebrile. Alert and oriented. Mood and affect appropriate. Follows and participates in conversation appropriately. Respiratory effort is unlabored. Able to transition from sit to stand with assistance. Wearing back brace. Back/Spine/Pelvis Other: Lumbar extension and flexion reproduces mild to moderate pain. Patient is wearing back brace during driving and appts but reports taking it off at home. Cervical Spine: loss of normal cervical lordosis, cervical muscular tenderness and No Cervical spine tenderness Thoracic/Lumbar Spine: thoracic and lumbar spine normal to inspection, Lasegue's sign negative, straight leg raise negative bilaterally, pain with thoraco- lumbar ROM, thoraco-lumbar ROM limited, thoracic spinal tenderness and No lumbar spinal tenderness Extrem Right lower extremity: knee (Limited ROM due to pain. No edema) Details: tenderness Location: of the patella and of the medial joint line, swelling and crepitus; no ecchymosis, no deformity and no unusual warmth Results Reviewed Results Reviewed: MM/XR DEXA axial skeleton 03/10/22 FINDINGS: AP SPINE L1-L4: Current: BMD 1.087 g/cm2, Z-score 1.3, T-score -0.8, normal, 3.1% increase from baseline (<5% change is not significant). Baseline: BMD 1.054 g/cm2. LEFT FEMUR, NECK: Current: BMD 0.666 g/cm2, Z-score -0.4, T-score -2.7, osteoporosis. Baseline: BMD 0.807 g/cm2. LEFT FEMUR, TOTAL: Current: BMD 0.588 g/cm2, Z-score -1.2, T-score -3.3, osteoporosis, 27.2% decrease from baseline (<5% change is not significant). Baseline: BMD 0.808 g/cm2. IDENTIFIED RISK FACTORS: Menopause, history of fracture (adult), rheumatoid arthritis, hysterectomy. HISTORY OF FRACTURE: Wrist. IMPRESSION: 1. DIAGNOSIS: Osteoporosis based on the lowest T-score value of -3.3 in the femur applying World Health Organization criteria. Assessment & Plan Assessment & Plan (1) Knee pain, right: Code(s): M25.561 - Pain in right knee (2) Osteoarthritis of right knee: Code(s): M17.11 - Unilateral primary osteoarthritis, right knee (3) Lumbar post-laminectomy syndrome: Comment: [employer]tronic SCS stimulator (>30 years ago) Dr. Crockett-revision of SCS and battery change in 2020 Code(s): M96.1 - Postlaminectomy syndrome, not elsewhere classified Plan Patient is status post right diagnostic genicular nerve block, US guided with 100% pain relief for 4-5 hours. Plan for orthopedic evaluation for potential right TKR at [facility] per patient's request prior to considering right genicular RFA. All questions and concerns have been answered and patient agreed with the plan. Follow up after ortho eval and sooner if needed. Past Procedures: 06/19/23: Diagnostic Right Genicular nerve block-100% pain relief for 4-5 hours 04/20/23: Diagnostic Right Saphenous nerve block at adductor canal-90% pain relief for 24 hours. Orders: Referrals Orthopedics Referral M17.11 - Unilateral primary osteoarthritis, right knee, M25.561 - Pain in right knee Coding Level of Care Code Est Pt Level 4 (46950) Diagnoses Knee pain, right M25.561 Osteoarthritis of right knee M17.11 Lumbar post-laminectomy syndrome M96.1
== END 2023-06-27 11:57 | disposition home or self-care (01) ==
PROVIDERS: PCP Internal Medicine; Visit Provider Nurse Practitioner Family
DX: M25.561 Pain in right knee (principal); M17.11 Unilateral primary osteoarthritis, right knee; M96.1 Postlaminectomy syndrome, not elsewhere classified
CPT/HCPCS: 99214

== ENCOUNTER → 2023-06-27 11:25 | Outpatient (BNVA) | payer MEDICARE, SELFPAY | PROVIDERS: PCP Internal Medicine; Visit Provider Nurse Practitioner Family | DX: M25.561 Pain in right knee (principal); M17.11 Unilateral primary osteoarthritis, right knee; M96.1 Postlaminectomy syndrome, not elsewhere classified | CPT/HCPCS: 99212 ==

== ENCOUNTER 2023-07-05 13:47 | Outpatient (AMB) | payer MEDICARE, SELFPAY ==
[2023-07-05 14:01] VITALS: BP 96/60; PULSE 96; O2SAT 98; BMI 22.7
--- NOTE | 2023-07-05 14:01 | MHC.PC.OV ---
Vital Signs 07/05/23 14:01 Height 5 ft 2 in Weight 124 lb BMI 22.7 BP 96/60 Blood Pressure Location Rt brachial Position Sitting Pulse 96 Pulse Source Pulse Oximeter Pulse Oximetry (%) 98 Oxygen Delivery Method Room Air Intake Visit Reasons: Hospital follow up [facility] Intake Note: Pt is here today for Hospital follow up visit. Allergies acetaminophen [From Tylenol] Allergy (Severe, Verified 07/05/23 14:08) ANAPHYLAXIS gabapentin [GABAPENTIN] Allergy (Severe, Verified 07/05/23 14:08) ANAPHYLAXIS levofloxacin [From Levaquin] Allergy (Severe, Verified 07/05/23 14:08) ANAPHYLAXIS Penicillins Allergy (Severe, Verified 07/05/23 14:08) ANAPHYLAXIS tetracycline [Tetracycline] Allergy (Severe, Verified 07/05/23 14:08) ANAPHYLAXIS vancomycin [Vancomycin] Adverse Reaction (Severe, Verified 07/05/23 14:08) Anaphylaxis Medication List - Last Reconciled 07/05/23 by Cait Locke MD back brace As directed cholecalciferol (vitamin D3) 75 mcg (3 x 25 mcg (1,000 unit)) PO DAILY clopidogrel 75 mg PO DAILY lidocaine 5% 1 patch topical DAILY 30 days magnesium glycinate 200 mg (2 x 100 mg) PO DAILY 30 days mexiletine 150 mg PO BID sertraline 25 mg PO DAILY tramadol 50 mg PO Q6H PRN Tobacco use date assessed: 07/05/23 Dental Screening Dental Screen Date: 07/05/23 Did you have a dental visit in the last 12 months?: Yes Did you have a dental problem in the last 6 months where you did not have access to dental care?: No Was dental information given to patient?: Patient has dentist [facility] Hospital follow up [facility] Details Pt presents for the follow-up of hospitalization [facility] for dizziness, chest pain and shortness of breath. Patient underwent nuclear stress test which was negative. Patient has been feeling anxious and upset because of advanced osteoarthritis of right knee and is contemplating a knee replacement surgery. Patient follows up with pain management for chronic lower back pain due to advanced osteoarthritis. She has not been able to perform her routine activity that she used to do in [employer]. [facility] Medical History Chest pain Chronic constipation COPD (chronic obstructive pulmonary disease) COVID-19 vaccine administered CVA (cerebral vascular accident) Eye exam abnormal Goiter, nodular History of hiatal hernia Hyperglycemia Hyperlipidemia Knee pain, right Lumbar spinal stenosis Macular degeneration Microscopic hematuria Nephrolithiasis Osteopenia Osteoporosis Postmenopausal Rectal bleed Spinal stenosis TIA (transient ischemic attack) Upper extremity weakness Vitamin D deficiency Vitreous detachment of right eye Surgical History H/O colonoscopy History of bladder suspension procedure History of hysterectomy History of repair of hiatal hernia Hx of cholecystectomy S/P insertion of spinal cord stimulator Family History Father History of heart attack Stroke Mother Stroke Diabetes mellitus Maternal Grandmother Diabetes mellitus Maternal Grandfather Diabetes mellitus Social History Household Members: Spouse Housing: [facility] Are you a primary health care technician to a significant other at home: No Do you presently have visiting nurse or other home services: No Alcohol intake: never Patient Tobacco Use Status: Former Tobacco user e-Cigarette/Vaping Use: Never Used Second Hand Smoke Exposure: No service: No Current occupational status: retired Current occupational exposures/hazards: No Cognitive needs: No Hearing needs: No Vision needs: No Questionnaire Thrive Questionnaire Date Thrive assessed: 03/01/23 JOHN-7 AMB Questionnaire JOHN-7 Date JOHN - 7 assessed: 03/01/23 Source: Developed by Drs. Konstantin Perea, Monserrat Mcneill, Costa Martinez and colleagues, with an educational tomasa from [employer]. Review of Systems Const All systems reviewed & are unremarkable except as noted in HPI and below Reports no additional complaints Eyes Reports no additional complaints ENT Reports no additional complaints Card Reports no additional complaints Resp Reports no additional complaints GI Reports no additional complaints Reports no additional complaints Physical exam (Primary Care) Vital Signs: Last Vital Signs Pulse 96 07/05/23 14:01 BP 96/60 07/05/23 14:01 Pulse Ox 98 07/05/23 14:01 Oxygen Delivery Method Room Air 07/05/23 14:01 BMI result Body Mass Index 22.7 Tobacco/Smoking Status: Tobacco use Status Tobacco use date assessed 07/05/23 07/05/23 14:13 Patient Tobacco Use Status Former Tobacco user 07/05/23 14:01 e-Cigarette/Vaping Use Never Used 07/05/23 14:01 Thrive Assessment: Date of Thrive Assessment Date Thrive assessed 03/01/23 07/05/23 14:01 Const General: anxious Eyes General: appearance normal, both eyes and all related structures Resp Effort & Inspection: normal respiratory effort Auscultation: diminished lung sounds Cardio Rhythm: regular rhythm Heart sounds: S1 normal heart sound present and S2 normal heart sound present GI Inspection: Yes normal to inspection Palpation (GI): Soft to palpation Assessment and Plan Assessment & Plan (1) Anxiety: Code(s): F41.9 - Anxiety disorder, unspecified Plan: Start 25 mg of Zoloft and stress management discussed with the patient. (2) Osteoarthritis of right knee: Code(s): M17.11 - Unilateral primary osteoarthritis, right knee Plan: Follow-up with orthopedic (3) Lumbar post-laminectomy syndrome: Comment: [employer]tr[employer] SCS stimulator (>30 years ago) [address]. Crockett-revision of SCS and battery change in 2020 Code(s): M96.1 - Postlaminectomy syndrome, not elsewhere classified Plan: Follow-up with pain management Medications: New sertraline 25 mg PO DAILY 90 tabs 0RF Coding Level of Care Code Est Pt Level 3 (30691) Diagnoses Anxiety F41.9 Osteoarthritis of right knee M17.11 Lumbar post-laminectomy syndrome M96.1
== END 2023-07-05 14:55 | disposition home or self-care (01) ==
PROVIDERS: PCP Internal Medicine; Visit Provider Internal Medicine
DX: F41.9 Anxiety disorder, unspecified (principal); M17.11 Unilateral primary osteoarthritis, right knee; M96.1 Postlaminectomy syndrome, not elsewhere classified
CPT/HCPCS: 99213

== ENCOUNTER 2023-07-21 10:03 | Outpatient (AMB) | payer MEDICARE, SELFPAY ==
[2023-07-21 10:24] VITALS: BP 118/66; PULSE 76; O2SAT 96; BMI 23.2
--- NOTE | 2023-07-21 10:24 | A.OFFPC_ITS ---
Vital Signs 07/21/23 10:24 Height 5 ft 2 in Weight 127 lb BMI 23.2 BP 118/66 Blood Pressure Location Lt brachial Position Sitting Pulse 76 Pulse Source Pulse Oximeter Pulse Oximetry (%) 96 Oxygen Delivery Method Room Air Intake Visit Reasons: Right Knee Replacement Discuss Intake Note: Pt is here today for a follow up visit. Pt states that she woke up today with swollen ankles. Allergies acetaminophen [From Tylenol] Allergy (Severe, Verified 07/21/23 10:28) ANAPHYLAXIS gabapentin [GABAPENTIN] Allergy (Severe, Verified 07/21/23 10:28) ANAPHYLAXIS levofloxacin [From Levaquin] Allergy (Severe, Verified 07/21/23 10:28) ANAPHYLAXIS Penicillins Allergy (Severe, Verified 07/21/23 10:28) ANAPHYLAXIS tetracycline [Tetracycline] Allergy (Severe, Verified 07/21/23 10:28) ANAPHYLAXIS vancomycin [Vancomycin] Adverse Reaction (Severe, Verified 07/21/23 10:28) Anaphylaxis Tobacco use date assessed: 07/05/23 HPI Right Knee Replacement Discuss HPI Details Patient presents for the follow-up of anxiety. She has been taking Zoloft but did not notice any change in her anxiety or depression. she noticed slight lower extremity swelling from Zoloft. Patient denies shortness of breath chest pain abdominal pain change in bowel bladder function. [facility] Medical History Chest pain Chronic constipation COPD (chronic obstructive pulmonary disease) COVID-19 vaccine administered CVA (cerebral vascular accident) Eye exam abnormal Goiter, nodular History of hiatal hernia Hyperglycemia Hyperlipidemia Knee pain, right Lumbar spinal stenosis Macular degeneration Microscopic hematuria Nephrolithiasis Osteopenia Osteoporosis Postmenopausal Rectal bleed Spinal stenosis TIA (transient ischemic attack) Upper extremity weakness Vitamin D deficiency Vitreous detachment of right eye Surgical History H/O colonoscopy History of bladder suspension procedure History of hysterectomy History of repair of hiatal hernia Hx of cholecystectomy S/P insertion of spinal cord stimulator Family History Father History of heart attack Stroke Mother Stroke Diabetes mellitus Maternal Grandmother Diabetes mellitus Maternal Grandfather Diabetes mellitus Social History Household Members: Spouse Housing: Condominium Are you a primary resident caregiver to a significant other at home: No Do you presently have visiting nurse or other home services: No Alcohol intake: never Patient Tobacco Use Status: Former Tobacco user e-Cigarette/Vaping Use: Never Used Second Hand Smoke Exposure: No service: No Current occupational status: retired Current occupational exposures/hazards: No Cognitive needs: No Hearing needs: No Vision needs: No Questionnaire Thrive Questionnaire Date Thrive assessed: 03/01/23 JOHN-7 AMB Questionnaire JOHN-7 Date JOHN - 7 assessed: 03/01/23 Source: Developed by Drs. Konstantin Perea, Monserrat Mcneill, Costa Martinez and colleagues, with an educational tomasa from [employer]. Review of Systems Const All systems reviewed & are unremarkable except as noted in HPI and below Reports no additional complaints Eyes Reports no additional complaints ENT Reports no additional complaints Card Reports no additional complaints Resp Reports no additional complaints GI Reports no additional complaints Physical exam (Primary Care) Vital Signs: Last Vital Signs Pulse 76 07/21/23 10:24 BP 118/66 07/21/23 10:24 Pulse Ox 96 07/21/23 10:24 Oxygen Delivery Method Room Air 07/21/23 10:24 BMI result Body Mass Index 23.2 Tobacco/Smoking Status: Tobacco use Status Tobacco use date assessed 07/05/23 07/21/23 10:30 Patient Tobacco Use Status Former Tobacco user 07/21/23 10:30 e-Cigarette/Vaping Use Never Used 07/21/23 10:30 Thrive Assessment: Date of Thrive Assessment Date Thrive assessed 03/01/23 07/21/23 10:30 Const General: no acute distress Neck Neck: Yes no lymphadenopathy and Yes supple Resp Effort & Inspection: normal respiratory effort Auscultation: clear to auscultation bilaterally Cardio Rhythm: regular rhythm Heart sounds: S1 normal heart sound present and S2 normal heart sound present GI Inspection: Yes normal to inspection Palpation (GI): Soft to palpation Extrem Other: Trace pitting edema bilaterally Assessment and Plan Assessment & Plan (1) Osteoarthritis of right knee: Code(s): M17.11 - Unilateral primary osteoarthritis, right knee Plan: Follow-up with Ortho (2) Hyperlipidemia: Code(s): E78.5 - Hyperlipidemia, unspecified Plan: On low-cholesterol diet (3) Anxiety: Code(s): F41.9 - Anxiety disorder, unspecified Plan: Patient will stop Zoloft since there is no change in her mood (4) Edema: Code(s): R60.9 - Edema, unspecified Plan: Check comprehensive panel, low sodium diet increase physical activity and elevation of lower extremity discussed with patient Orders: Orders Comprehensive [place]. Panel Fast Today E78.5 - Hyperlipidemia, unspecified, M17.11 - Unilateral primary osteoarthritis, right knee, R60.9 - Edema, unspecified Lipid Panel Today E78.5 - Hyperlipidemia, unspecified, M17.11 - Unilateral primary osteoarthritis, right knee, R60.9 - Edema, unspecified TSH reflex Free T4 Today E78.5 - Hyperlipidemia, unspecified, M17.11 - Unilateral primary osteoarthritis, right knee, R60.9 - Edema, unspecified Complete Blood Count Auto Diff Today E78.5 - Hyperlipidemia, unspecified, M17.11 - Unilateral primary osteoarthritis, right knee, R60.9 - Edema, unspecified Coding Level of Care Code Est Pt Level 3 (95539) Diagnoses Osteoarthritis of right knee M17.11 Hyperlipidemia E78.5 Anxiety F41.9 Edema R60.9
== END 2023-07-21 11:17 | disposition home or self-care (01) ==
PROVIDERS: PCP Internal Medicine; Visit Provider Internal Medicine
DX: M17.11 Unilateral primary osteoarthritis, right knee (principal); E78.5 Hyperlipidemia, unspecified; F41.9 Anxiety disorder, unspecified; R60.9 Edema, unspecified
CPT/HCPCS: 99213

== ENCOUNTER 2023-07-21 11:15 | Outpatient (REF) | payer MEDICARE, SELFPAY ==
[2023-07-21 13:41] LABS: MANUAL DIFF FLAG NO
[2023-07-21 13:52] LABS: Basophils Percent Auto 0.8 % (0-2); Eosinophils Absolute Auto 0.1 X10*3/uL (0.0-0.4); Eosinophils Percent Auto 1.1 % (0-4); Hematocrit 39.9 % (37.0-47.0); Hemoglobin 12.7 g/dl (12.0-16.0); Imm Gran Abs Auto 0.02 X10*3/uL (0.00-0.03); Imm Gran Pct Auto 0.4 % (0.0-0.4); Lymphocytes Percent Auto 38.4 % (20-40); Mean Corpuscular HGB Conc 31.8 g/dl (31.0-35.0); Mean Corpuscular Hemoglobin 28.9 pg (27.0-33.0); Mean Corpuscular Volume 90.7 fL (80.0-98.0); Mean Platelet Volume 8.2 fL (9.4-12.3); Monocytes Absolute Auto 0.5 X10*3/uL (0.1-1.2); Monocytes Percent Auto 8.6 % (2-11); Neutrophils Absolute Auto 2.7 x10*3/uL (2.0-8.3); Neutrophils Percent Auto 50.7 % (45-73); Platelet Count 201 X10*3/uL (160-400); Red Cell Distribution Width 14.1 % (11.0-16.0); White Blood Count 5.2 X10*3/uL (4.8-10.8)
[2023-07-21 14:32] LABS: Alanine Aminotransferase 21 U/L (0-31); Albumin Level 3.5 g/dL (3.5-5.0); Alkaline Phosphatase 100 U/L (39-117); Anion Gap 9 (12-20); Aspartate Amino Transferase 21 U/L (5-31); Bilirubin Total 0.4 mg/dL (0.0-1.0); Blood Urea Nitrogen 12 mg/dL (9-16); Carbon Dioxide 29 mmol/L (22-29); Chloride 109 mmol/L (96-108); Cholesterol 190 mg/dL (<200); Estimated Glomerular Filt Rate > 60; Glucose Fasting 91 mg/dL (60-99); HDL Cholesterol 65 mg/dL (>40); LDL Cholesterol Calculated 109 mg/dL (<100); Sodium 143 mmol/L (135-145); Total Protein 6.3 g/dL (6.5-8.0); Triglycerides 83 mg/dL (<150)
[2023-07-21 14:35] LABS: TSH reflex Free T4 0.24 uIU/mL (0.32-4.0)
[2023-07-21 15:20] LABS: Free T4 (Free Thyroxine) 0.94 ng/dL (0.71-1.85)
== END 2023-07-21 11:16 | disposition home or self-care (01) ==
LOC: HO.HMGCLDS 11:15
PROVIDERS: PCP Internal Medicine; Visit Provider Internal Medicine
DX: E78.5 Hyperlipidemia, unspecified (principal); R60.9 Edema, unspecified; M17.11 Unilateral primary osteoarthritis, right knee
CPT/HCPCS: 36415; 80053; 80061; 84439; 84443; 85025

== ENCOUNTER 2023-12-08 13:17 | Outpatient (AMB) | payer MEDICARE, SELFPAY ==
--- NOTE | 2023-12-08 13:24 | A.OFFPC_ITS ---
Vital Signs 12/08/23 13:27 Height 5 ft 2 in Weight 119 lb BMI 21.8 BP 122/74 Blood Pressure Location Rt brachial Position Sitting Pulse 73 Pulse Source Pulse Oximeter Pulse Oximetry (%) 96 Oxygen Delivery Method Room Air Intake Visit Reasons: Vicky Phillips/ / Right knee surgery Intake Note: Pt is here today for a Hospital follow up . Allergies acetaminophen [From Tylenol] Allergy (Severe, Verified 12/08/23 13:29) ANAPHYLAXIS gabapentin [GABAPENTIN] Allergy (Severe, Verified 12/08/23 13:29) ANAPHYLAXIS levofloxacin [From Levaquin] Allergy (Severe, Verified 12/08/23 13:29) ANAPHYLAXIS Penicillins Allergy (Severe, Verified 12/08/23 13:29) ANAPHYLAXIS tetracycline [Tetracycline] Allergy (Severe, Verified 12/08/23 13:29) ANAPHYLAXIS vancomycin [Vancomycin] Adverse Reaction (Severe, Verified 12/08/23 13:29) Anaphylaxis alendronate sodium [From Fosamax] Adverse Reaction (Intermediate, Verified 12/08/23 14:07) Abdominal Pain Medication List - Last Reconciled 12/08/23 by Cait Locke MD back brace As directed cholecalciferol (vitamin D3) 75 mcg (3 x 25 mcg (1,000 unit)) PO DAILY clopidogrel 75 mg PO DAILY lidocaine 5% 1 patch topical DAILY 30 days magnesium glycinate 200 mg (2 x 100 mg) PO DAILY 30 days mexiletine 150 mg PO BID sertraline 25 mg PO DAILY Tobacco use date assessed: 12/08/23 Fall risk assessment: No Falls in past year Last assessed Fall Risk: 12/08/23 Dental Screening Dental Screen Date: 12/08/23 Did you have a dental visit in the last 12 months?: Yes Did you have a dental problem in the last 6 months where you did not have access to dental care?: No Was dental information given to patient?: Patient has dentist HPI Vicky Phillips/ / Right knee surgery HPI Details Patient presents for the follow-up of right knee arthroplasty 1 month ago. Patient recovered well and has been getting home physical therapy and ambulating with a cane. [facility] Medical History Chest pain Chronic constipation COPD (chronic obstructive pulmonary disease) COVID-19 vaccine administered CVA (cerebral vascular accident) Eye exam abnormal Goiter, nodular History of hiatal hernia Hyperglycemia Hyperlipidemia Knee pain, right Lumbar spinal stenosis Macular degeneration Microscopic hematuria Nephrolithiasis Osteopenia Osteoporosis Postmenopausal Rectal bleed Spinal stenosis TIA (transient ischemic attack) Upper extremity weakness Vitamin D deficiency Vitreous detachment of right eye Surgical History H/O colonoscopy History of bladder suspension procedure History of hysterectomy History of repair of hiatal hernia Hx of cholecystectomy S/P insertion of spinal cord stimulator Family History Father History of heart attack Stroke Mother Stroke Diabetes mellitus Maternal Grandmother Diabetes mellitus Maternal Grandfather Diabetes mellitus Social History Household Members: Spouse Housing: [facility] Are you a primary career services representative to a significant other at home: No Do you presently have visiting nurse or other home services: No Alcohol intake: never Patient Tobacco Use Status: Former Tobacco user e-Cigarette/Vaping Use: Never Used Second Hand Smoke Exposure: No service: No Current occupational status: retired Current occupational exposures/hazards: No Cognitive needs: No Hearing needs: No Vision needs: No Questionnaire PHQ-9 Over the last 2 weeks, how often have you been bothered by any of the following problems? 1. Little interest or pleasure in doing things: not at all 2. Feeling down, depressed, or hopeless: not at all 3. Trouble falling or staying asleep, or sleeping too much: not at all 4. Feeling tired or having little energy: not at all 5. Poor appetite or overeating: not at all 6. Feeling bad about yourself - or that you are a failure or have let yourself or your family down: not at all 7. Trouble concentrating on things, such as reading the newspaper or watching television: not at all 8. Moving or speaking so slowly that other people could have noticed. Or the opposite - being so fidgety or restless that you have been moving around a lot more than usual: not at all 9. Thoughts that you would be better off or of hurting yourself in some way: not at all Total score: 0 Depression Screening Interpretation: Negative Depression Screening Done: Yes Source: Developed by Drs. Konstantin Perea, Monserrat Mcneill, Costa Martinez and colleagues, with an educational tomasa from [employer]. Thrive Questionnaire Date Thrive assessed: 12/08/23 I am a: Patient What is your living situation today?: I have a steady place to live Within the past 12 months, did the food you bought not last and you didn't have the money to get more?: Never true Within the past 12 months, did you worry whether your food would run out before you got money to buy more?: Never true Do you have trouble paying for medicines?: No Do you have trouble getting transportation to medical appointments?: No Do you have trouble paying your heating and electricity bill?: No Do you have trouble taking care of your child, family member or friend?: No Do you have trouble with day-to-day activities such as bathing, preparing meals, shopping, managing finances, etc.?: No Are you currently unemployed and looking for a job?: No Are you interested in more education?: No Please select the resources that you would like help with: None AUDIT C Alcohol Use Questionnaire (AUDIT-C) 1. How often do you have a drink containing alcohol?: Never 3. How often do you have six or more drinks on one occasion?: Never Total Score: 0 JOHN-7 AMB Questionnaire JOHN-7 Date JOHN - 7 assessed: 12/08/23 Feeling nervous, anxious, or on edge: 0 = Not at all Not being able to stop or control worryin = Not at all Worrying too much about different things: 0 = Not at all Trouble relaxin = Not at all Being so restless that it is hard to sit still: 0 = Not at all Becoming easily annoyed or irritable: 0 = Not at all Feeling afraid as if something awful might happen: 0 = Not at all Total JOHN-7 score (0-4 normal; 5-9 mild; 10-14 moderate; 15-21 severe): 0 Source: Developed by Drs. Konstantin Perea, Costa Mccracken and colleagues, with an educational tomasa from [employer]. Physical exam (Primary Care) Vital Signs: Last Vital Signs Pulse 73 12/08/23 13:27 BP 122/74 12/08/23 13:27 Pulse Ox 96 12/08/23 13:27 Oxygen Delivery Method Room Air 12/08/23 13:27 BMI result Body Mass Index 21.8 Tobacco/Smoking Status: Tobacco use Status Tobacco use date assessed 12/08/23 12/08/23 13:33 Patient Tobacco Use Status Former Tobacco user 12/08/23 13:33 e-Cigarette/Vaping Use Never Used 12/08/23 13:33 PHQ-9: PHQ-9 Score PHQ-9: Total score 0 12/08/23 13:33 Depression Screening Interpretation: Negative Thrive Assessment: Date of Thrive Assessment Date Thrive assessed 12/08/23 12/08/23 13:33 Const General: no acute distress HENMT Mouth: Normal oral and palatal mucosa present Eyes General: appearance normal, both eyes and all related structures Neck Neck: Yes supple Resp Effort & Inspection: normal respiratory effort Auscultation: clear to auscultation bilaterally Cardio Rhythm: regular rhythm Heart sounds: S1 normal heart sound present and S2 normal heart sound present GI Inspection: Yes normal to inspection Palpation (GI): Soft to palpation Percussion: Yes normal to percussion Auscultation: normal bowel sounds Assessment and Plan Assessment & Plan (1) Hyperlipidemia: Code(s): E78.5 - Hyperlipidemia, unspecified Plan: Continue low-cholesterol diet (2) Hyperglycemia: Code(s): R73.9 - Hyperglycemia, unspecified Plan: Continue ADA diet check A1c (3) Osteoporosis: Comment: DEXA 04/18 Fosamax tried, patient stopped because of stomach upset, patient refused the treatment Code(s): M81.0 - Age-related osteoporosis without current pathological fracture Plan: Continue vitamin-D calcium, regular weight-bearing exercise. patient refused treatment (4) Vitamin D deficiency: Code(s): E55.9 - Vitamin D deficiency, unspecified Orders: Orders Comprehensive [place]. Panel Fast Today E78.5 - Hyperlipidemia, unspecified, M81.0 - Age-related osteoporosis without current pathological fracture, R73.9 - Hyperglycemia, unspecified Hemoglobin A1c Today E78.5 - Hyperlipidemia, unspecified, M81.0 - Age-related osteoporosis without current pathological fracture, R73.9 - Hyperglycemia, unspecified Lipid Panel Today E78.5 - Hyperlipidemia, unspecified, M81.0 - Age-related osteoporosis without current pathological fracture, R73.9 - Hyperglycemia, unspecified TSH reflex Free T4 Today E78.5 - Hyperlipidemia, unspecified, M81.0 - Age- related osteoporosis without current pathological fracture, R73.9 - Hyperglycemia, unspecified IRON PROFILE Today E78.5 - Hyperlipidemia, unspecified, M81.0 - Age-related osteoporosis without current pathological fracture, R73.9 - Hyperglycemia, unspecified Vitamin D 25-OH Total Today E55.9 - Vitamin D deficiency, unspecified Complete Blood Count Auto Diff Today E78.5 - Hyperlipidemia, unspecified, M81.0 - Age-related osteoporosis without current pathological fracture, R73.9 - Hyperglycemia, unspecified Medications: Refilled mexiletine 150 mg PO BID 180 caps 2RF Discontinued sertraline Discontinued Reason: Doctor's Order 25 mg PO DAILY 90 tabs 0RF magnesium glycinate Discontinued Reason: Doctor's Order 200 mg (2 x 100 mg) PO DAILY 30 days 60 tabs 1RF muscle spasms M48.061 - Spinal stenosis, lumbar region without neurogenic claudication, M62.838 - Other muscle spasm, M96.1 - Postlaminectomy syndrome, not elsewhere classified Coding Level of Care Code Est Pt Level 4 (24453) Diagnoses Hyperlipidemia E78.5 Hyperglycemia R73.9 Osteoporosis M81.0 Vitamin D deficiency E55.9
[2023-12-08 13:27] VITALS: BP 122/74; PULSE 73; O2SAT 96; BMI 21.8
== END 2023-12-08 13:57 | disposition home or self-care (01) ==
PROVIDERS: PCP Internal Medicine; Visit Provider Internal Medicine
DX: E78.5 Hyperlipidemia, unspecified (principal); R73.9 Hyperglycemia, unspecified; M81.0 Age-related osteoporosis without current pathological fracture; E55.9 Vitamin D deficiency, unspecified
CPT/HCPCS: 99214

== ENCOUNTER 2023-12-19 07:41 | Outpatient (REF) | payer MEDICARE, SELFPAY ==
[2023-12-19 11:39] LABS: MANUAL DIFF FLAG NO
[2023-12-19 12:09] LABS: Estimated Average Glucose 111 mg/dL; Hemoglobin A1c % 5.5 % (<6.0)
[2023-12-19 12:28] LABS: Alanine Aminotransferase 9 U/L (0-31); Albumin Level 3.8 g/dL (3.5-5.0); Alkaline Phosphatase 103 U/L (39-117); Anion Gap 11 (12-20); Aspartate Amino Transferase 12 U/L (5-31); Bilirubin Total 0.3 mg/dL (0.0-1.0); Blood Urea Nitrogen 13 mg/dL (9-16); Calcium 9.4 mg/dL (8.4-10.2); Carbon Dioxide 29 mmol/L (22-29); Chloride 105 mmol/L (96-108); Cholesterol 224 mg/dL (<200); Estimated Glomerular Filt Rate > 60; Glucose Fasting 100 mg/dL (60-99); HDL Cholesterol 80 mg/dL (>40); Iron 85 mcg/dL (30-160); LDL Cholesterol Calculated 123 mg/dL (<100); Percent Iron Saturation 27 % (15-50); Potassium 4.3 mmol/L (3.3-5.1); Sodium 141 mmol/L (135-145); TSH reflex Free T4 0.61 uIU/mL (0.32-4.0); Total Iron Binding Capacity 316 mcg/dL (228-428); Total Protein 6.6 g/dL (6.5-8.0); Triglycerides 105 mg/dL (<150); Unsaturated Iron Binding 231 ug/dL; Vitamin D 25-OH Total 31.3 ng/mL (>30)
[2023-12-19 12:50] LABS: Basophils Percent Auto 0.6 % (0-2); Eosinophils Absolute Auto 0.1 X10*3/uL (0.0-0.4); Eosinophils Percent Auto 1.6 % (0-4); Hematocrit 42.8 % (37.0-47.0); Hemoglobin 13.9 g/dl (12.0-16.0); Imm Gran Abs Auto 0.01 X10*3/uL (0.00-0.03); Imm Gran Pct Auto 0.2 % (0.0-0.4); Lymphocytes Absolute Auto 1.2 X10*3/uL (1.2-4.9); Lymphocytes Percent Auto 24.1 % (20-40); Mean Corpuscular HGB Conc 32.5 g/dl (31.0-35.0); Mean Corpuscular Hemoglobin 29.8 pg (27.0-33.0); Mean Corpuscular Volume 91.6 fL (80.0-98.0); Mean Platelet Volume 8.4 fL (9.4-12.3); Monocytes Absolute Auto 0.4 X10*3/uL (0.1-1.2); Monocytes Percent Auto 7.8 % (2-11); Neutrophils Absolute Auto 3.3 x10*3/uL (2.0-8.3); Neutrophils Percent Auto 65.7 % (45-73); Platelet Count 250 X10*3/uL (160-400); Red Blood Count 4.67 X10*6/uL (4.20-5.50); Red Cell Distribution Width 13.1 % (11.0-16.0)
== END 2023-12-19 07:42 | disposition home or self-care (01) ==
LOC: HO.HMGCLDS 07:41
PROVIDERS: PCP Internal Medicine; Visit Provider Internal Medicine
DX: E78.5 Hyperlipidemia, unspecified (principal); R73.9 Hyperglycemia, unspecified; M81.0 Age-related osteoporosis without current pathological fracture; E55.9 Vitamin D deficiency, unspecified
CPT/HCPCS: 36415; 80053; 80061; 82306; 83036; 83540; 84443; 85025

== ENCOUNTER 2024-07-12 12:52 | Outpatient (AMB) | payer MEDICARE, SELFPAY ==
[2024-07-12 13:05] VITALS: BP 128/80; PULSE 86; O2SAT 96; BMI 22.1
--- NOTE | 2024-07-12 13:05 | A.OFFPC_ITS ---
Vital Signs 07/12/24 13:05 Height 5 ft 2 in Weight 121 lb BMI 22.1 BP 128/80 Blood Pressure Location Rt brachial Position Sitting Pulse 86 Pulse Source Pulse Oximeter Pulse Oximetry (%) 96 Oxygen Delivery Method Room Air Intake Visit Reasons: Swollen feet Intake Note: Pt is here today for a sick visit. Pt c/o swelling in her feet. Allergies acetaminophen [From Tylenol] Allergy (Severe, Verified 07/12/24 13:11) ANAPHYLAXIS gabapentin [GABAPENTIN] Allergy (Severe, Verified 07/12/24 13:11) ANAPHYLAXIS levofloxacin [From Levaquin] Allergy (Severe, Verified 07/12/24 13:11) ANAPHYLAXIS Penicillins Allergy (Severe, Verified 07/12/24 13:11) ANAPHYLAXIS tetracycline [Tetracycline] Allergy (Severe, Verified 07/12/24 13:11) ANAPHYLAXIS vancomycin [Vancomycin] Adverse Reaction (Severe, Verified 07/12/24 13:11) Anaphylaxis alendronate sodium [From Fosamax] Adverse Reaction (Intermediate, Verified 07/12/24 13:11) Abdominal Pain Medication List - Last Reconciled 07/12/24 by Cait Locke MD back brace As directed cholecalciferol (vitamin D3) 75 mcg (3 x 25 mcg (1,000 unit)) PO DAILY clopidogrel 75 mg PO DAILY lidocaine 5% 1 patch topical DAILY 30 days mexiletine 150 mg PO BID Tobacco use date assessed: 07/12/24 Fall risk assessment: 1 Fall in past year Last assessed Fall Risk: 07/12/24 Dental Screening Dental Screen Date: 07/12/24 HPI Swollen feet HPI Details Patient presents complaining of bilateral feet swelling worse at the end of the day for the last week. Her 1 week ago at home from lung cancer. Patient denies depression, chest pain shortness of breath palpitations. She sleeps in a recliner because of her chronic lower back pain and spinal stenosis. [facility] Medical History (Updated 12/08/23 @ 14:09 by Cait Locke MD) Osteoporosis Hyperglycemia Postmenopausal Vitamin D deficiency Vitreous detachment of right eye Chest pain Lumbar spinal stenosis Knee pain, right TIA (transient ischemic attack) Upper extremity weakness COPD (chronic obstructive pulmonary disease) COVID-19 vaccine administered Chronic constipation Rectal bleed Hyperlipidemia Macular degeneration CVA (cerebral vascular accident) Goiter, nodular Osteopenia Nephrolithiasis Microscopic hematuria Spinal stenosis History of hiatal hernia Eye exam abnormal Surgical History (Updated 07/12/24 @ 13:12 by NEENA Jordan) H/O: knee surgery History of repair of hiatal hernia H/O colonoscopy S/P insertion of spinal cord stimulator History of bladder suspension procedure History of hysterectomy Hx of cholecystectomy Family History Father History of heart attack Stroke Mother Stroke Diabetes mellitus Maternal Grandmother Diabetes mellitus Maternal Grandfather Diabetes mellitus Social History Household Members: Spouse Housing: Condominium Are you a primary administrator health care facility to a significant other at home: No Do you presently have visiting nurse or other home services: No Alcohol intake: never Patient Tobacco Use Status: Former Tobacco user e-Cigarette/Vaping Use: Never Used Second Hand Smoke Exposure: No service: No Current occupational status: retired Current occupational exposures/hazards: No Cognitive needs: No Hearing needs: No Vision needs: No Questionnaire PHQ-9 Over the last 2 weeks, how often have you been bothered by any of the following problems? 1. Little interest or pleasure in doing things: not at all 2. Feeling down, depressed, or hopeless: several days 3. Trouble falling or staying asleep, or sleeping too much: several days 4. Feeling tired or having little energy: not at all 5. Poor appetite or overeating: several days 6. Feeling bad about yourself - or that you are a failure or have let yourself or your family down: not at all 7. Trouble concentrating on things, such as reading the newspaper or watching television: not at all 8. Moving or speaking so slowly that other people could have noticed. Or the opposite - being so fidgety or restless that you have been moving around a lot more than usual: not at all 9. Thoughts that you would be better off or of hurting yourself in some way: not at all Total score: 3 Depression Screening Interpretation: Negative Depression Screening Done: Yes Source: Developed by Drs. Konstantin Perea, Monserrat Mcneill, Costa Martinez and colleagues, with an educational tomasa from [employer]. Thrive Questionnaire Date Thrive assessed: 07/12/24 I am a: Patient What is your living situation today?: I have a steady place to live Within the past 12 months, did the food you bought not last and you didn't have the money to get more?: Sometimes True Within the past 12 months, did you worry whether your food would run out before you got money to buy more?: Sometimes True Do you have trouble paying for medicines?: No Do you have trouble getting transportation to medical appointments?: No Do you have trouble paying your heating and electricity bill?: No Do you have trouble taking care of your child, family member or friend?: No Do you have trouble with day-to-day activities such as bathing, preparing meals, shopping, managing finances, etc.?: No Are you currently unemployed and looking for a job?: No Are you interested in more education?: No Please select the resources that you would like help with: None Currently or been in a relationship where the following occur: No concerns reported THRIVE Score: 2 AUDIT C Alcohol Use Questionnaire (AUDIT-C) 1. How often do you have a drink containing alcohol?: Never 3. How often do you have six or more drinks on one occasion?: Never Total Score: 0 JOHN-7 AMB Questionnaire JOHN-7 Date JOHN - 7 assessed: 07/12/24 Feeling nervous, anxious, or on edge: 0 = Not at all Not being able to stop or control worryin = Not at all Worrying too much about different things: 0 = Not at all Trouble relaxin = Not at all Being so restless that it is hard to sit still: 0 = Not at all Becoming easily annoyed or irritable: 0 = Not at all Feeling afraid as if something awful might happen: 0 = Not at all Total JOHN-7 score (0-4 normal; 5-9 mild; 10-14 moderate; 15-21 severe): 0 Source: Developed by Drs. Konstantin Perea, Monserrat Mcneill, Costa Martinez and colleagues, with an educational tomasa from [employer]. JOHN-7 Assessment Billing JOHN-7 Assessment Tool: JOHN-7 Assessment 43361 Review of Systems Const All systems reviewed & are unremarkable except as noted in HPI and below Eyes Reports no additional complaints ENT Reports no additional complaints Card Reports no additional complaints Resp Reports no additional complaints GI Reports no additional complaints Physical exam (Primary Care) Vital Signs: Last Vital Signs Pulse 86 07/12/24 13:05 BP 128/80 07/12/24 13:05 Pulse Ox 96 07/12/24 13:05 Oxygen Delivery Method Room Air 07/12/24 13:05 BMI result Body Mass Index 22.1 Tobacco/Smoking Status: Tobacco use Status Tobacco use date assessed 07/12/24 07/12/24 13:13 Patient Tobacco Use Status Former Tobacco user 07/12/24 13:06 e-Cigarette/Vaping Use Never Used 07/12/24 13:06 PHQ-9: PHQ-9 Score PHQ-9: Total score 3 07/12/24 13:15 Depression Screening Interpretation: Negative Thrive Assessment: Date of Thrive Assessment Date Thrive assessed 07/12/24 07/12/24 13:15 Currently or been in a relationship where the following occur: No concerns reported Const General: no acute distress HENMT Throat: Yes posterior oropharynx normal Neck Neck: Yes supple Resp Effort & Inspection: normal respiratory effort Auscultation: clear to auscultation bilaterally Cardio Rhythm: regular rhythm Heart sounds: S1 normal heart sound present and S2 normal heart sound present GI Inspection: Yes normal to inspection Palpation (GI): Soft to palpation Percussion: Yes normal to percussion Auscultation: normal bowel sounds Extrem Other: Trace pedal edema on the dorsum of both feet, no erythema warmth or tenderness Assessment and Plan Assessment & Plan (1) Edema: Code(s): R60.9 - Edema, unspecified Plan: Check blood work and urinalysis BNP. Patient was advised to elevate lower extremities decrease sodium intake and decrease ibuprofen dose from 800 mg to 400 mg twice a day (2) Lumbar post-laminectomy syndrome: Comment: [employer] SCS stimulator (>30 years ago) Dr. Crockett-revision of SCS and battery change in 2020 Code(s): M96.1 - Postlaminectomy syndrome, not elsewhere classified (3) Hyperglycemia: Code(s): R73.9 - Hyperglycemia, unspecified Plan: Continue ADA diet Orders: Orders B Type Natriuretic Peptide Today M96.1 - Postlaminectomy syndrome, not elsewhere classified, R60.9 - Edema, unspecified, R73.9 - Hyperglycemia, unspecified Comprehensive Met. Panel Today M96.1 - Postlaminectomy syndrome, not elsewhere classified, R60.9 - Edema, unspecified, R73.9 - Hyperglycemia, unspecified Complete Blood Count Auto Diff Today M96.1 - Postlaminectomy syndrome, not elsewhere classified, R60.9 - Edema, unspecified, R73.9 - Hyperglycemia, unspecified TSH reflex Free T4 Today M96.1 - Postlaminectomy syndrome, not elsewhere classified, R60.9 - Edema, unspecified, R73.9 - Hyperglycemia, unspecified UA w Microscopic Today M96.1 - Postlaminectomy syndrome, not elsewhere classified, R60.9 - Edema, unspecified, R73.9 - Hyperglycemia, unspecified Medications: Discontinued clopidogrel Discontinued Reason: Doctor's Order 75 mg PO DAILY 90 tabs 3RF cholecalciferol (vitamin D3) Discontinued Reason: Doctor's Order 75 mcg (3 x 25 mcg (1,000 unit)) PO DAILY 270 caps 3RF mexiletine Discontinued Reason: Doctor's Order 150 mg PO BID 180 caps 1RF Coding Level of Care Code Est Pt Level 3 (40588) Diagnoses Edema R60.9 Lumbar post-laminectomy syndrome M96.1 Hyperglycemia R73.9 Additional Codes JOHN-7 Assessment Billing - JOHN-7 Assessment Tool: JOHN-7 Assessment 48726 ([id number])
== END 2024-07-12 15:02 | disposition home or self-care (01) ==
PROVIDERS: PCP Internal Medicine; Visit Provider Internal Medicine
DX: R60.9 Edema, unspecified (principal); M96.1 Postlaminectomy syndrome, not elsewhere classified; R73.9 Hyperglycemia, unspecified
CPT/HCPCS: 99213

== ENCOUNTER 2024-07-12 13:56 | Outpatient (REF) | payer MEDICARE, SELFPAY ==
[2024-07-12 16:04] LABS: MANUAL DIFF FLAG NO
[2024-07-12 16:08] LABS: Appearance Urine Clear; Color Urine Yellow; Glucose Urine UA Negative (Negative); Leukocyte Esterase Urine Negative (Negative); Nitrite Urine Negative (Negative); Specific Gravity - Urine 1.015 (1.005-1.025); Urine Blood Negative (Negative); Urine Ketones Negative (Negative); Urine Protein Negative (Neg-Trace)
[2024-07-12 16:10] LABS: Bacteria Urine None Seen (None Seen); Hyaline Casts Urine 0-2 /LPF (0-2); RBC Urine 0-2 /HPF (0-2); Squamous Epithelial Cell Urine 0-2 /HPF (0-2); WBC Urine 0-5 /HPF (0-5)
[2024-07-12 16:14] LABS: Basophils Percent Auto 0.4 % (0-2); Eosinophils Absolute Auto 0.1 X10*3/uL (0.0-0.4); Eosinophils Percent Auto 1.2 % (0-4); Hematocrit 40.4 % (37.0-47.0); Hemoglobin 13.5 g/dl (12.0-16.0); Imm Gran Abs Auto 0.02 X10*3/uL (0.00-0.03); Imm Gran Pct Auto 0.4 % (0.0-0.4); Lymphocytes Absolute Auto 1.1 X10*3/uL (1.2-4.9); Mean Corpuscular HGB Conc 33.4 g/dl (31.0-35.0); Mean Corpuscular Hemoglobin 30.6 pg (27.0-33.0); Mean Corpuscular Volume 91.6 fL (80.0-98.0); Mean Platelet Volume 8.8 fL (9.4-12.3); Monocytes Absolute Auto 0.5 X10*3/uL (0.1-1.2); Monocytes Percent Auto 9.5 % (2-11); Neutrophils Absolute Auto 3.2 x10*3/uL (2.0-8.3); Neutrophils Percent Auto 65.5 % (45-73); Platelet Count 210 X10*3/uL (160-400); Red Blood Count 4.41 X10*6/uL (4.20-5.50); Red Cell Distribution Width 12.8 % (11.0-16.0); White Blood Count 4.8 X10*3/uL (4.8-10.8)
[2024-07-12 16:31] LABS: Alanine Aminotransferase 9 U/L (0-31); Alkaline Phosphatase 95 U/L (39-117); Anion Gap 11 (12-20); Aspartate Amino Transferase 11 U/L (5-31); Bilirubin Total 0.4 mg/dL (0.0-1.0); Blood Urea Nitrogen 10 mg/dL (9-16); Calcium 9.4 mg/dL (8.4-10.2); Carbon Dioxide 29 mmol/L (22-29); Chloride 105 mmol/L (96-108); Estimated Glomerular Filt Rate > 60; Glucose Random 96 mg/dL (60-115); Sodium 141 mmol/L (135-145); Total Protein 6.5 g/dL (6.5-8.0)
[2024-07-12 16:43] LABS: B Type Natriuretic Peptide 39 pg/mL (<100)
[2024-07-12 16:50] LABS: TSH reflex Free T4 0.51 uIU/mL (0.32-4.0)
== END 2024-07-12 13:57 | disposition home or self-care (01) ==
LOC: HO.HMGCLDS 13:56
PROVIDERS: PCP Internal Medicine; Visit Provider Internal Medicine
DX: R60.9 Edema, unspecified (principal); M96.1 Postlaminectomy syndrome, not elsewhere classified; R73.9 Hyperglycemia, unspecified
CPT/HCPCS: 36415; 80053; 81001; 83880; 84443; 85025

== ENCOUNTER 2024-07-25 12:44 | Outpatient (AMB) | payer MEDICARE, SELFPAY ==
[2024-07-25 12:50] VITALS: BP 108/66; PULSE 81; O2SAT 96; BMI 22.1
--- NOTE | 2024-07-25 12:50 | A.OFFPC_ITS ---
Vital Signs 07/25/24 12:50 Height 5 ft 2 in Weight 121 lb BMI 22.1 BP 108/66 Blood Pressure Location Rt brachial Position Sitting Pulse 81 Pulse Source Pulse Oximeter Pulse Oximetry (%) 96 Oxygen Delivery Method Room Air Intake Visit Reasons: SwellingAnklesOnBothLegs Intake Note: Pt is here today for a follow up visit on bilateral ankle swelling Allergies acetaminophen [From Tylenol] Allergy (Severe, Verified 07/12/24 13:11) ANAPHYLAXIS gabapentin [GABAPENTIN] Allergy (Severe, Verified 07/12/24 13:11) ANAPHYLAXIS levofloxacin [From Levaquin] Allergy (Severe, Verified 07/12/24 13:11) ANAPHYLAXIS Penicillins Allergy (Severe, Verified 07/12/24 13:11) ANAPHYLAXIS tetracycline [Tetracycline] Allergy (Severe, Verified 07/12/24 13:11) ANAPHYLAXIS vancomycin [Vancomycin] Adverse Reaction (Severe, Verified 07/12/24 13:11) Anaphylaxis alendronate sodium [From Fosamax] Adverse Reaction (Intermediate, Verified 07/12/24 13:11) Abdominal Pain Medication List - Last Reconciled 07/25/24 by Cait Locke MD back brace As directed lidocaine 5% 1 patch topical DAILY 30 days Tobacco use date assessed: 07/12/24 Dental Screening Dental Screen Date: 07/12/24 HPI SwellingAnklesOnBothLegs HPI Details Patient presents complaining of worsening left lower extremity swelling worse at the end of the day. Patient has been walking limping because of lower back pain. She has been sleeping in recliner in trying to elevate her lower ext remities. Patient denies pain in the left lower extremity, PND orthopnea shortness of breath. [facility] Medical History Osteoporosis Hyperglycemia Postmenopausal Vitamin D deficiency Vitreous detachment of right eye Chest pain Lumbar spinal stenosis Knee pain, right TIA (transient ischemic attack) Upper extremity weakness COPD (chronic obstructive pulmonary disease) COVID-19 vaccine administered Chronic constipation Rectal bleed Hyperlipidemia Macular degeneration CVA (cerebral vascular accident) Goiter, nodular Osteopenia Nephrolithiasis Microscopic hematuria Spinal stenosis History of hiatal hernia Eye exam abnormal Surgical History (Updated 07/12/24 @ 13:12 by Angy Quinonez Andrew) H/O: knee surgery History of repair of hiatal hernia H/O colonoscopy S/P insertion of spinal cord stimulator History of bladder suspension procedure History of hysterectomy Hx of cholecystectomy Family History Father History of heart attack Stroke Mother Stroke Diabetes mellitus Maternal Grandmother Diabetes mellitus Maternal Grandfather Diabetes mellitus Social History Household Members: [facility] Are you a primary animal care specialist to a significant other at home: No Do you presently have visiting nurse or other home services: No Alcohol intake: never Patient Tobacco Use Status: Former Tobacco user e-Cigarette/Vaping Use: Never Used Second Hand Smoke Exposure: No service: No Current occupational status: retired Current occupational exposures/hazards: No Cognitive needs: No Hearing needs: No Vision needs: No Questionnaire PHQ-9 Over the last 2 weeks, how often have you been bothered by any of the following problems? 1. Little interest or pleasure in doing things: not at all 2. Feeling down, depressed, or hopeless: several days 3. Trouble falling or staying asleep, or sleeping too much: several days 4. Feeling tired or having little energy: not at all 5. Poor appetite or overeating: several days 6. Feeling bad about yourself - or that you are a failure or have let yourself or your family down: not at all 7. Trouble concentrating on things, such as reading the newspaper or watching television: not at all 8. Moving or speaking so slowly that other people could have noticed. Or the opposite - being so fidgety or restless that you have been moving around a lot more than usual: not at all 9. Thoughts that you would be better off or of hurting yourself in some way: not at all Total score: 3 Depression Screening Interpretation: Negative Depression Screening Done: Yes [id number] - PHQ-9 Billing: Yes Source: Developed by Drs. Konstantin Perea, Monserrat Mcneill, Costa Martinez and colleagues, with an educational tomasa from [employer]. Thrive Questionnaire Date Thrive assessed: 07/12/24 I am a: Patient What is your living situation today?: I have a steady place to live Within the past 12 months, did the food you bought not last and you didn't have the money to get more?: Sometimes True Within the past 12 months, did you worry whether your food would run out before you got money to buy more?: Sometimes True Do you have trouble paying for medicines?: No Do you have trouble getting transportation to medical appointments?: No Do you have trouble paying your heating and electricity bill?: No Do you have trouble taking care of your child, family member or friend?: No Do you have trouble with day-to-day activities such as bathing, preparing meals, shopping, managing finances, etc.?: No Are you currently unemployed and looking for a job?: No Are you interested in more education?: No Please select the resources that you would like help with: None Currently or been in a relationship where the following occur: No concerns reported THRIVE Score: 2 AUDIT C Alcohol Use Questionnaire (AUDIT-C) 1. How often do you have a drink containing alcohol?: Never Total Score: 0 JOHN-7 AMB Questionnaire JOHN-7 Date JOHN - 7 assessed: 07/12/24 Feeling nervous, anxious, or on edge: 0 = Not at all Not being able to stop or control worryin = Not at all Worrying too much about different things: 0 = Not at all Trouble relaxin = Not at all Being so restless that it is hard to sit still: 0 = Not at all Becoming easily annoyed or irritable: 0 = Not at all Feeling afraid as if something awful might happen: 0 = Not at all Total JOHN-7 score (0-4 normal; 5-9 mild; 10-14 moderate; 15-21 severe): 0 Source: Developed by Drs. Konstantin Perea, Monserrat Mcneill, Costa Martinez and colleagues, with an educational tomasa from [employer]. Review of Systems Const All systems reviewed & are unremarkable except as noted in HPI and below Card Reports no additional complaints Resp Reports no additional complaints GI Reports no additional complaints Reports no additional complaints Physical exam (Primary Care) Vital Signs: Last Vital Signs Pulse 81 07/25/24 12:50 BP 108/66 07/25/24 12:50 Pulse Ox 96 07/25/24 12:50 Oxygen Delivery Method Room Air 07/25/24 12:50 BMI result Body Mass Index 22.1 Tobacco/Smoking Status: Tobacco use Status Tobacco use date assessed 07/12/24 07/25/24 12:52 Patient Tobacco Use Status Former Tobacco user 07/25/24 12:52 e-Cigarette/Vaping Use Never Used 07/25/24 12:52 PHQ-9: PHQ-9 Score PHQ-9: Total score 3 07/25/24 12:52 Depression Screening Interpretation: Negative Thrive Assessment: Date of Thrive Assessment Date Thrive assessed 07/12/24 07/25/24 12:52 Currently or been in a relationship where the following occur: No concerns reported Const General: no acute distress HENMT Ears: hearing grossly normal bilaterally Neck Neck: Yes supple Resp Effort & Inspection: normal respiratory effort Auscultation: clear to auscultation bilaterally Cardio Rhythm: regular rhythm Heart sounds: S1 normal heart sound present and S2 normal heart sound present GI Inspection: Yes normal to inspection Palpation (GI): Soft to palpation Percussion: Yes normal to percussion Auscultation: normal bowel sounds Extrem Other: 1+ pitting edema of left lower extremity, trace pitting edema right lower extremity, no calf tenderness erythema or warmth Assessment and Plan Assessment & Plan (1) Left leg swelling: Code(s): M79.89 - Other specified soft tissue disorders Plan: Obtain venous ultrasound to rule out DVT, Lasix 20 mg daily for 1 month is prescribed. Patient was advised to elevate lower extremities when sitting and wear compression knee-highs Orders: Orders US venous duplex LE LT Today M79.89 - Other specified soft tissue disorders Medications: New furosemide (Lasix) 20 mg PO DAILY 30 tabs 1RF furosemide (Lasix) 20 mg PO DAILY 30 tabs 1RF Coding Level of Care Code Est Pt Level 3 (69379) Diagnoses Left leg swelling M79.89
== END 2024-07-25 14:28 | disposition home or self-care (01) ==
PROVIDERS: PCP Internal Medicine; Visit Provider Internal Medicine
DX: M79.89 Other specified soft tissue disorders (principal)
CPT/HCPCS: 99213

== ENCOUNTER 2024-07-25 13:48 | Outpatient (REF) | payer MEDICARE, SELFPAY ==
--- NOTE | ~2024-07-25 | US_ITS ---
EXAMINATION: US TRIPLEX LOWER EXTREMITY, LEFT CLINICAL INFORMATION: Left lower extremity swelling. Rule out DVT. COMPARISON: None available. TECHNIQUE: Color-flow triplex imaging with spectral analysis and compression Doppler were performed on the left lower extremity. FINDINGS: Respiratory variation, normal compression and augmented flow are noted throughout the left lower extremity. The visualized common femoral vein, superficial femoral vein, profunda femoral vein, popliteal vein and midcalf peroneal and posterior tibial venous segments show no evidence of deep venous thrombosis. There is no Paul's cyst. US/US venous duplex LE LT IMPRESSION: No evidence of deep venous thrombosis involving the left lower extremity. Electronically signed by: Harish Martines MD 07/25/2024 02:42 PM EDT
== END 2024-07-25 13:49 | disposition home or self-care (01) ==
LOC: HO.HMGCX 13:48
PROVIDERS: PCP Internal Medicine; Visit Provider Internal Medicine
DX: M79.605 Pain in left leg (principal); M79.89 Other specified soft tissue disorders
CPT/HCPCS: 93971

== ENCOUNTER 2025-05-10 08:20 | Outpatient (REF) | payer MEDICARE, SELFPAY ==
--- NOTE | ~2025-05-10 | XR_ITS ---
EXAMINATION: XR ANKLE, RIGHT CLINICAL INFORMATION: M25.571 - Pain in right ankle and joints of right foot COMPARISON: None available. TECHNIQUE: AP, lateral, and mortise views of the right ankle. FINDINGS: Edema pattern, bimalleolar. No subcutaneous emphysema. Well-corticated cortical irregularity in the inferior lateral malleolus. No acute cortical disruption. No gross malalignment. Small plantar calcaneal spur. No lytic or blastic lesions. Osteopenia versus osteoporosis. XR/XR ankle RT min 3V IMPRESSION: Edema, bimalleolar. No acute fracture or dislocation. Electronically signed by: Jermaine Daley MD 05/10/2025 09:38 AM EDT
[2025-05-10 10:01] LABS: MANUAL DIFF FLAG NO
[2025-05-10 10:15] LABS: Basophils Percent Auto 0.5 % (0-2); Eosinophils Absolute Auto 0.1 X10*3/uL (0.0-0.4); Eosinophils Percent Auto 1.5 % (0-4); Hematocrit 43.8 % (37.0-47.0); Hemoglobin 14.4 g/dl (12.0-16.0); Imm Gran Abs Auto 0.02 X10*3/uL (0.00-0.03); Imm Gran Pct Auto 0.3 % (0.0-0.4); Lymphocytes Absolute Auto 1.2 X10*3/uL (1.2-4.9); Lymphocytes Percent Auto 19.5 % (20-40); Mean Corpuscular HGB Conc 32.9 g/dl (31.0-35.0); Mean Corpuscular Hemoglobin 30.4 pg (27.0-33.0); Mean Corpuscular Volume 92.4 fL (80.0-98.0); Monocytes Absolute Auto 0.4 X10*3/uL (0.1-1.2); Monocytes Percent Auto 6.5 % (2-11); Neutrophils Absolute Auto 4.3 x10*3/uL (2.0-8.3); Neutrophils Percent Auto 71.7 % (45-73); Platelet Count 241 X10*3/uL (160-400); Red Blood Count 4.74 X10*6/uL (4.20-5.50)
[2025-05-10 10:49] LABS: Alanine Aminotransferase 11 U/L (0-31); Albumin Level 4.2 g/dL (3.5-5.0); Alkaline Phosphatase 92 U/L (39-117); Anion Gap 8 (12-20); Aspartate Amino Transferase 18 U/L (5-31); Bilirubin Total 0.3 mg/dL (0.0-1.0); Blood Urea Nitrogen 14 mg/dL (9-16); Calcium 9.4 mg/dL (8.4-10.2); Carbon Dioxide 30 mmol/L (22-29); Chloride 108 mmol/L (96-108); Cholesterol 219 mg/dL (<200); Estimated Glomerular Filt Rate > 60; Glucose Fasting 108 mg/dL (60-99); HDL Cholesterol 77 mg/dL (>40); LDL Cholesterol Calculated 126 mg/dL (<100); Sodium 141 mmol/L (135-145); Total Protein 6.9 g/dL (6.5-8.0); Triglycerides 84 mg/dL (<150)
[2025-05-10 11:05] LABS: TSH reflex Free T4 0.58 uIU/mL (0.32-4.0); Vitamin D 25-OH Total 21.3 ng/mL (>30)
== END 2025-05-10 08:21 | disposition home or self-care (01) ==
LOC: HO.HMGCX 08:20
PROVIDERS: PCP Internal Medicine; Visit Provider Internal Medicine
DX: M25.571 Pain in right ankle and joints of right foot (principal); M81.0 Age-related osteoporosis without current pathological fracture; M48.50XA Collapsed vertebra, not elsewhere classified, site unspecified, initial encounter for fracture
CPT/HCPCS: 36415; 73610; 80053; 80061; 82306; 84443; 85025; 96127; 99212

== ENCOUNTER 2025-05-10 08:20 | Outpatient (AMB) | payer MEDICARE, SELFPAY ==
--- NOTE | 2025-05-10 08:29 | MHC.PC.OV ---
Vital Signs 05/10/25 08:30 Height 5 ft 2 in Weight 122 lb 6 oz BMI 22.4 BP 122/72 Blood Pressure Location Rt brachial Position Sitting Respiration 14 Pulse 76 Pulse Source Pulse Oximeter Temp 97.8 F Temp Source Oral Pulse Oximetry (%) 95 Oxygen Delivery Method Room Air Intake Visit Reasons: Swollen R ankle Intake Note: Pt is here due to swollen right on ankle ongoing for 4 days. Allergies acetaminophen [From Tylenol] Allergy (Severe, Verified 05/10/25 08:31) ANAPHYLAXIS gabapentin [GABAPENTIN] Allergy (Severe, Verified 05/10/25 08:31) ANAPHYLAXIS levofloxacin [From Levaquin] Allergy (Severe, Verified 05/10/25 08:31) ANAPHYLAXIS Penicillins Allergy (Severe, Verified 05/10/25 08:31) ANAPHYLAXIS tetracycline [Tetracycline] Allergy (Severe, Verified 05/10/25 08:31) ANAPHYLAXIS vancomycin [Vancomycin] Adverse Reaction (Severe, Verified 05/10/25 08:31) Anaphylaxis alendronate sodium [From Fosamax] Adverse Reaction (Intermediate, Verified 05/10/25 08:31) Abdominal Pain Medication List - Last Reconciled 05/10/25 by Cait Locke MD back brace As directed meloxicam 15 mg PO DAILY povidone (PF) 0.5% (iVizia (PF)) drps ophthalmic (eye) vitamins A,C,O-dvrk-pybvaj 4,296 mcg-226 mg-90 mg (PreserVision AREDS) 1 cap PO BID Tobacco use date assessed: 05/10/25 Fall risk assessment: No Falls in past year Last assessed Fall Risk: 05/10/25 Dental Screening Dental Screen Date: 05/10/25 Did you have a dental visit in the last 12 months?: No Did you have a dental problem in the last 6 months where you did not have access to dental care?: No Was dental information given to patient?: No HPI Swollen R ankle HPI Details PATIENT PRESENTS COMPLAINING OF RIGHT ANKLE ON SWELLING AND PAIN WORSE WHEN WALKING FOR 2 WEEKS. SHE DENIES ANY INJURY. SHE HAS BEEN VERY ACTIVE [employer] EVERY DAY. Patient denies chest pain shortness or breath cough GI or complaints PFSH Medical History (Updated 05/10/25 @ 09:10 by Cait Locke MD) Osteoporosis Hyperglycemia Postmenopausal Vitamin D deficiency Vitreous detachment of right eye Chest pain Lumbar spinal stenosis Knee pain, right TIA (transient ischemic attack) Upper extremity weakness COPD (chronic obstructive pulmonary disease) COVID-19 vaccine administered Chronic constipation Rectal bleed Hyperlipidemia Macular degeneration CVA (cerebral vascular accident) Goiter, nodular Osteopenia Nephrolithiasis Microscopic hematuria Spinal stenosis History of hiatal hernia Eye exam abnormal Surgical History H/O: knee surgery History of repair of hiatal hernia H/O colonoscopy S/P insertion of spinal cord stimulator History of bladder suspension procedure History of hysterectomy Hx of cholecystectomy Family History Father History of heart attack Stroke Mother Stroke Diabetes mellitus Maternal Grandmother Diabetes mellitus Maternal Grandfather Diabetes mellitus Social History Household Members: Spouse Housing: [facility] Are you a primary rn acute care to a significant other at home: No Do you presently have visiting nurse or other home services: No Alcohol intake: never Patient Tobacco Use Status: Former Tobacco user e-Cigarette/Vaping Use: Never Used Second Hand Smoke Exposure: No service: No Current occupational status: retired Current occupational exposures/hazards: No Cognitive needs: No Hearing needs: No Vision needs: No Questionnaire PHQ-9 Over the last 2 weeks, how often have you been bothered by any of the following problems? 1. Little interest or pleasure in doing things: not at all 2. Feeling down, depressed, or hopeless: several days 3. Trouble falling or staying asleep, or sleeping too much: several days 4. Feeling tired or having little energy: not at all 5. Poor appetite or overeating: several days 6. Feeling bad about yourself - or that you are a failure or have let yourself or your family down: not at all 7. Trouble concentrating on things, such as reading the newspaper or watching television: not at all 8. Moving or speaking so slowly that other people could have noticed. Or the opposite - being so fidgety or restless that you have been moving around a lot more than usual: not at all 9. Thoughts that you would be better off or of hurting yourself in some way: not at all Total score: 3 Depression Screening Interpretation: Negative Depression Screening Done: Yes 30238 - PHQ-9 Billing: Yes Source: Developed by Drs. Konstantin Perea, Costa Mccracken and colleagues, with an educational tomasa from [employer]. Thrive Questionnaire Date Thrive assessed: 05/10/25 JOHN-7 AMB Questionnaire JOHN-7 Date JOHN - 7 assessed: 05/10/25 Feeling nervous, anxious, or on edge: 0 = Not at all Not being able to stop or control worryin = Not at all Worrying too much about different things: 0 = Not at all Trouble relaxin = Not at all Being so restless that it is hard to sit still: 0 = Not at all Becoming easily annoyed or irritable: 0 = Not at all Feeling afraid as if something awful might happen: 0 = Not at all Total JOHN-7 score (0-4 normal; 5-9 mild; 10-14 moderate; 15-21 severe): 0 Source: Developed by Drs. Konstantin Perea, Costa Mccracken and colleagues, with an educational tomasa from [employer]. Review of Systems Const All systems reviewed & are unremarkable except as noted in HPI and below Eyes Reports no additional complaints ENT Reports no additional complaints Card Reports no additional complaints Resp Reports no additional complaints GI Reports no additional complaints Reports no additional complaints Physical exam (Primary Care) Vital Signs: Last Vital Signs Temp 97.8 F 05/10/25 08:30 Pulse 76 05/10/25 08:30 Resp 14 05/10/25 08:30 BP 122/72 05/10/25 08:30 Pulse Ox 95 05/10/25 08:30 Oxygen Delivery Method Room Air 05/10/25 08:30 BMI result Body Mass Index 22.4 Tobacco/Smoking Status: Tobacco use Status Tobacco use date assessed 05/10/25 05/10/25 08:36 Patient Tobacco Use Status Former Tobacco user 05/10/25 08:30 e-Cigarette/Vaping Use Never Used 05/10/25 08:30 PHQ-9: PHQ-9 Score PHQ-9: Total score 3 05/10/25 08:36 Depression Screening Interpretation: Negative Thrive Assessment: Date of Thrive Assessment Date Thrive assessed 05/10/25 05/10/25 08:30 Const General: no acute distress [facility] Head: Yes normal to inspection Resp Effort & Inspection: normal respiratory effort Auscultation: clear to auscultation bilaterally Cardio Rhythm: regular rhythm Heart sounds: S1 normal heart sound present and S2 normal heart sound present Extrem Other: Right ankle with soft tissue swelling slight warmth slightly decreased range of motion Coding Level of Care Code Est Pt Level 4 (54362) Diagnoses Ankle pain, right M25.571 Osteoporosis M81.0 Vertebral compression fracture M48.50XA Additional Codes PHQ-9 - 34549 - PHQ-9 Billing: Yes ([id number]) Assessment & Plan Assessment & Plan (1) Ankle pain, right: Code(s): M25.571 - Pain in right ankle and joints of right foot Category: Medical Plan: Obtain x-ray of right ankle, a meloxicam 50 mg for 10 days is prescribed (2) Osteoporosis: Comment: DEXA 04/18 Fosamax tried, patient stopped because of stomach upset, patient refused the treatment Code(s): M81.0 - Age-related osteoporosis without current pathological fracture Category: Medical Plan: Patient had a vertebral fracture last year. Comprehensive panel vitamin D level will be checked. Patient was advised to start taking 2000 units of vitamin D3 Prolia will be started (3) Vertebral compression fracture: Comment: 2023 ? [facility] Code(s): M48.50XA - Collapsed vertebra, not elsewhere classified, site unspecified, initial encounter for fracture Category: Medical Plan: Start Prolia as above Orders: Orders XR ankle RT min 3V Today M25.571 - Pain in right ankle and joints of right foot Comprehensive [place]. Panel Fast Today M81.0 - Age-related osteoporosis without current pathological fracture Complete Blood Count Auto Diff Today M81.0 - Age-related osteoporosis without current pathological fracture Lipid Panel Today M81.0 - Age-related osteoporosis without current pathological fracture Vitamin D 25-OH Total Today M81.0 - Age-related osteoporosis without current pathological fracture TSH reflex Free T4 Today M81.0 - Age-related osteoporosis without current pathological fracture Medications: New meloxicam 15 mg PO DAILY 10 tabs 0RF Prolia (denosumab) 60 mg subcut [id number] 1 mL 2RF NS cholecalciferol (vitamin D3) 50 mcg PO DAILY 90 tabs 2RF
--- OUTSIDE RECORDS SUMMARY | 2025-05-10 08:29 | XMS_ITS | Clinical Summary ---
Author Organization [facility] Address [address] [place] [address] Care Team Providers Care Thread Laster Name Role Phone [place]-Natividad Lambert MD Primary Care Provider Allergies Active Allergy Reactions Criticality Noted Date Comments Gabapentin 03/23/2018 Levofloxacin 03/23/2018 Penicillins 03/23/2018 Tetracycline 03/23/2018 Acetaminophen 03/23/2018 Vancomycin 03/23/2018 Medications Medication Sig Dispensed Refills Start Date End Date Status clopidogrel (PLAVIX) 75 MG tablet TAKE ONE TABLET BY MOUTH EVERY DAY 5 02/16/2018 Active mexiletine (MEXITIL) 150 MG capsule 0 03/22/2018 Active simvastatin (ZOCOR) tablet 40 mg TAKE 1 TABLET BY MOUTH AT BEDTIME 0 02/01/2018 Active Active Problems Problem Noted Date Diagnosed Date Microhematuria 03/23/2018 Kidney stone 03/23/2018 Abnormal findings on cytolog ical and histological examination of urine 03/23/2018 Family History Medical History Relation Name Comments Brain cancer Father Lung cancer Father Heart disease Mother Stroke Mother Tuberculosis Sister Relation Name Status Comments Father Mother Sister Social History Tobacco Use Types Packs/Day Years Used Date Smoking Tobacco: Former Cigarettes Q uit: 07/29/1990 Smokeless Tobacco: Never Alcohol Use Standard Drinks/Week Comments No 0 (1 standard drink = 0.6 oz pur e alcohol) Sex and Gender Information Value Date Recorded Sex Assigned at Not on file Gender Identity Not on file Sexual Orientation Not on file Plan of Treatment Health Maintenance Due Date Last Done Comments COVID-19 Vaccine (#1) 1943 Depression Screening 1955 Preventative Health Evaluation 1961 DTap / Tdap / Td (1 - Tdap) 1962 Shingrix-Zoster Vaccine (1 of 2) 1993 Fall Risk Assessment 2008 Osteoporosis Screening (DEXA Scan) 2008 Pneumococcal Vaccine (1 of 1 - PCV) 2008 RSV Adult > 60+ Yrs or Pregn ant (1 - 1-dose 75+ series) 2018 Influenza Vaccine (Season Ended) 2025 Hepatitis B Vaccines Aged Out No long er eligible based on patient's age to complete this topic RSV Ped < 20 months Aged Out No longe r eligible based on patient's age to complete this topic Care Teams Thread Laster Relationship Specialty Start Date End Date [place]-Natividad Lambert MD PCP - General Internal Medicine 03/23/18
[2025-05-10 08:30] VITALS: BP 122/72; PULSE 76; RESP 14; TEMP 36.6; O2SAT 95; BMI 22.4
== END 2025-05-10 09:05 | disposition home or self-care (01) ==
LOC: HO.HMCC 08:21
PROVIDERS: PCP Internal Medicine; Visit Provider Internal Medicine
DX: M25.571 Pain in right ankle and joints of right foot (principal); M81.0 Age-related osteoporosis without current pathological fracture; M48.50XA Collapsed vertebra, not elsewhere classified, site unspecified, initial encounter for fracture

== ENCOUNTER → 2025-05-10 09:11 | Outpatient (BNV) | payer MEDICARE, SELFPAY | PROVIDERS: PCP Internal Medicine; Visit Provider Radiology Diagnostic Radiology | DX: R60.0 Localized edema (principal) | CPT/HCPCS: 73610 ==

== ENCOUNTER 2025-05-15 12:53 | Outpatient (AMB) | payer MEDICARE, SELFPAY ==
[2025-05-15 13:20] VITALS: BP 110/82; PULSE 90; TEMP 36.7; O2SAT 97; BMI 21.6
--- NOTE | 2025-05-15 13:20 | AM.OFFWIN_ITS ---
Intake Vital Signs 05/15/25 13:20 Height 5 ft 2 in Weight 118 lb BMI 21.6 BP 110/82 Blood Pressure Location Lt brachial Position Sitting Pulse 90 Pulse Source Pulse Oximeter Temp 98.1 F Temp Source Oral Pulse Oximetry (%) 97 Oxygen Delivery Method Room Air Intake Visit Reasons: EP pain & swollen RT ankle Intake Note: Pt presents to the office today for c/o rt ankle swelling and pain. Pt states she was seen on Tuesday for the same concern but didnt have pain on Tuesday. Pt states she is having severe pain today. Patient Tobacco Use Status: Former Tobacco user Allergies acetaminophen (From Tylenol) Allergy (Severe, Verified 05/15/25 13:23) ANAPHYLAXIS gabapentin (GABAPENTIN) Allergy (Severe, Verified 05/15/25 13:23) ANAPHYLAXIS levofloxacin (From Levaquin) Allergy (Severe, Verified 05/15/25 13:23) ANAPHYLAXIS Penicillins Allergy (Severe, Verified 05/15/25 13:23) ANAPHYLAXIS tetracycline (Tetracycline) Allergy (Severe, Verified 05/15/25 13:23) ANAPHYLAXIS vancomycin (Vancomycin) Adverse Reaction (Severe, Verified 05/15/25 13:23) Anaphylaxis alendronate sodium (From Fosamax) Adverse Reaction (Intermediate, Verified 05/15/25 13:23) Abdominal Pain HPI HPI Comments History of Present Illness Details History - The patient is an 80-year-old female p resenting with right ankle pain and swelling. - Symptoms started 9-10 days ago with an episode of swelling. - Was seen here on Tuesday for ankle swel ling and she had an x-ray done. - [facility] at [facility] today she experienced increased pain when stepping off a pew in the [facility]. - She states that the pain was from the medial to the lateral side of the right ankle and across her foot. - She has pain with bearing weight and w alking. - Initial swelling noted without prior p ain, indicating acute onset. - Imaging showed ankle swelling, calcane al spur, and absence of malalignment. - Has underlying conditions of osteoporo sis and lower spine fracture. - No audible pop or crunch noted when sh e stepped off the pew. - She did not fall. She denies numbness or tingling. - She denies calf pain, knee pain, or up per leg pain. She denies hip pain. Physical Exam General: cooperative, healthy appearing and comfortable, patient oriented x3 Effort & Inspection: normal respiratory effort and able to speak in complete sentences Cardiac: Regular rate and rhythm. No m/r/g noted. Extremities: motor strength normal bilaterally, sensation intact bilaterally, swelling on both sides of the ankle on the right. TTP of the medial and lateral malleolus and across the top of the foot. TTP of the base of the 5th metatarsal on the right foot. Ambulates with a steady gait. Patient was informed and verbally consented to the use of an ambient scribe for clinic note documentation during this visit. [facility] Medical History Osteoporosis Hyperglycemia Postmenopausal Vitamin D deficiency Vitreous detachment of right eye Chest pain Lumbar spinal stenosis Knee pain, right TIA (transient ischemic attack) Upper extremity weakness COPD (chronic obstructive pulmonary disease) COVID-19 vaccine administered Chronic constipation Rectal bleed Hyperlipidemia Macular degeneration CVA (cerebral vascular accident) Goiter, nodular Osteopenia Nephrolithiasis Microscopic hematuria Spinal stenosis History of hiatal hernia Eye exam abnormal Surgical History H/O: knee surgery History of repair of hiatal hernia H/O colonoscopy S/P insertion of spinal cord stimulator History of bladder suspension procedure History of hysterectomy Hx of cholecystectomy Family History Father History of heart attack Stroke Mother Stroke Diabetes mellitus Maternal Grandmother Diabetes mellitus Maternal Grandfather Diabetes mellitus Social History Household Members: Spouse Housing: [facility] Are you a primary respiratory care technician to a significant other at home: No Do you presently have visiting nurse or other home services: No Alcohol intake: never Patient Tobacco Use Status: Former Tobacco user e-Cigarette/Vaping Use: Never Used Second Hand Smoke Exposure: No service: No Current occupational status: retired Current occupational exposures/hazards: No Cognitive needs: No Hearing needs: No Vision needs: No Review of Systems Const All systems reviewed & are unremarkable except as noted in HPI and below Physical Exam Vital Signs: Last Vital Signs Temp 98.1 F 05/15/25 13:20 Pulse 90 05/15/25 13:20 BP 110/82 05/15/25 13:20 Pulse Ox 97 05/15/25 13:20 Oxygen Delivery Method Room Air 05/15/25 13:20 BMI result Body Mass Index 21.6 Assessment & Plan Assessment & Plan (1) Right ankle sprain: Code(s): S93.401A - Sprain of unspecified ligament of right ankle, initial encounter Qualifiers: Encounter type: initial encounter Involved ligament of ankle: unspecified ligament Qualified Code(s): S93.401A - Sprain of unspecified ligament of right ankle, initial encounter Plan Most likely sprain vs osteopenia vs osteoporosis Plan 1. Ankle Sprain - Rest, ice and elevation - Reviewed the x-ray from Tuesday - Tylenol or Motrin as needed for pain. - Plan includes the use of an ankle brace to enhance support. - Referral to orthopedics to address stability issues due to possible weakness from underlying osteoporosis. Orders: Referrals Orthopedics Referral S93.401A - Sprain of unspecified ligament of right ankle, initial encounter Coding Level of Care Code Est Pt Level 4 (81035) Diagnoses Sprain of right ankle, unspecified ligament, initial encounter S93.401A Encounter type: initial encounter Involved ligament of ankle: unspecified ligament
--- OUTSIDE RECORDS SUMMARY | 2025-05-15 14:45 | XMS_ITS | Clinical Summary ---
Author Organization [facility] Address [address] [place] [address] Care Team Providers Care Shift Coordinator Name Role Phone [place]-Natividad Lambert MD Primary Care Provider Allergies Active [...] age to complete this topic Care Teams Shift Coordinator Relationship Specialty Start Date End Date [place]-Natividad Lambert MD PCP - General Internal Medicine 03/23/18
== END 2025-05-15 14:57 | disposition home or self-care (01) ==
PROVIDERS: PCP Internal Medicine; Visit Provider Physician Assistant Medical
DX: S93.401A Sprain of unspecified ligament of right ankle, initial encounter (principal)

== ENCOUNTER → 2025-05-15 12:53 | Outpatient (BNVA) | payer MEDICARE, SELFPAY | PROVIDERS: PCP Internal Medicine; Visit Provider Physician Assistant Medical | DX: S93.401A Sprain of unspecified ligament of right ankle, initial encounter (principal); X58.XXXA Exposure to other specified factors, initial encounter; Y93.9 Activity, unspecified; Y92.9 Unspecified place or not applicable; Y99.9 Unspecified external cause status | CPT/HCPCS: 99212 ==

== ENCOUNTER 2025-05-17 14:50 | Outpatient (AMB) | payer MEDICARE, SELFPAY ==
--- OUTSIDE RECORDS SUMMARY | 2025-05-17 14:52 | XMS_ITS | Clinical Summary ---
Author Organization [facility] Address [address] [place] [address] Care Team Providers Care Cloud Services Architect Name Role Phone [place]-Natividad Lambert MD Primary Care Provider Allergies Active [...] age to complete this topic Care Teams Cloud Services Architect Relationship Specialty Start Date End Date Bro[place]-Natividad Lambert MD PCP - General Internal Medicine 03/23/18
--- NOTE | 2025-05-20 14:37 | AM.OFFVISNUR ---
Intake Visit Reasons: Prolia Intake Note: Late entry from 05/17/25-Pt arrrived for Q 6 month Prolia Allergies acetaminophen (From Tylenol) Allergy (Severe, Verified 05/15/25 13:23) ANAPHYLAXIS gabapentin (GABAPENTIN) Allergy (Severe, Verified 05/15/25 13:23) ANAPHYLAXIS levofloxacin (From Levaquin) Allergy (Severe, Verified 05/15/25 13:23) ANAPHYLAXIS Penicillins Allergy (Severe, Verified 05/15/25 13:23) ANAPHYLAXIS tetracycline (Tetracycline) Allergy (Severe, Verified 05/15/25 13:23) ANAPHYLAXIS vancomycin (Vancomycin) Adverse Reaction (Severe, Verified 05/15/25 13:23) Anaphylaxis alendronate sodium (From Fosamax) Adverse Reaction (Intermediate, Verified 05/15/25 13:23) Abdominal Pain Office Meds Prolia 60 mg/mL subcutaneous syringe Performing Provider: Cait Locke MD Performing Location: [facility] Administered by: Sherri Walters RN on 05/17/25 14:38 Dose Route Admin Location Dispensed Lot Number Expiration Date [facility] [employer] 60 mg subcut left upper arm 1 mL [id number] 07/28/27 18456-654-71 [employer] Total Dispensed Waste 1 mL 0 % Comments: Pt supplied Assessment & Plan Assessment & Plan Orders: Orders AMB Denosumab Injection Patient Supplied 05/17/25 M81.0 - Age-related osteoporosis without current pathological fracture Coding
== END 2025-05-17 16:21 | disposition home or self-care (01) ==
LOC: HO.HMCC 14:50
PROVIDERS: PCP Internal Medicine; Visit Provider Internal Medicine
DX: M81.0 Age-related osteoporosis without current pathological fracture (principal)

== ENCOUNTER → 2025-05-17 14:50 | Outpatient (BNVA) | payer MEDICARE, SELFPAY | PROVIDERS: PCP Internal Medicine; Visit Provider Internal Medicine | DX: M81.0 Age-related osteoporosis without current pathological fracture (principal) | CPT/HCPCS: 96372; J0897 ==

== ENCOUNTER 2025-07-02 11:32 | Outpatient (AMB) | payer MEDICARE, SELFPAY ==
[2025-07-02 11:35] VITALS: BP 110/78; PULSE 86; RESP 16; O2SAT 97; BMI 22.5
--- NOTE | 2025-07-02 11:35 | A.OFFPC_ITS ---
Vital Signs 07/02/25 11:35 Height 5 ft 2 in Weight 123 lb BMI 22.5 BP 110/78 Blood Pressure Location Rt brachial Position Sitting Respiration 16 Pulse 86 Pulse Source Pulse Oximeter Pulse Oximetry (%) 97 Oxygen Delivery Method Room Air Intake Visit Reasons: 2 months follow up Program Coordinator Executive Education Required: No Accompanied by: Self / Same As Patient Allergies acetaminophen (From Tylenol) Allergy (Severe, Verified 07/02/25 12:08) ANAPHYLAXIS gabapentin (GABAPENTIN) Allergy (Severe, Verified 07/02/25 12:08) ANAPHYLAXIS levofloxacin (From Levaquin) Allergy (Severe, Verified 07/02/25 12:08) ANAPHYLAXIS Penicillins Allergy (Severe, Verified 07/02/25 12:08) ANAPHYLAXIS tetracycline (Tetracycline) Allergy (Severe, Verified 07/02/25 12:08) ANAPHYLAXIS vancomycin (Vancomycin) Adverse Reaction (Severe, Verified 07/02/25 12:08) Anaphylaxis alendronate sodium (From Fosamax) Adverse Reaction (Intermediate, Verified 07/02/25 12:08) Abdominal Pain Medication List - Last Reconciled 07/02/25 by Cait Locke MD back brace As directed cholecalciferol (vitamin D3) 50 mcg PO DAILY meloxicam 15 mg PO DAILY povidone (PF) 0.5% (iVizia (PF)) drps ophthalmic (eye) Prolia (denosumab) 60 mg subcut [id number] NS vitamins A,C,M-ajyb-enbhqx 4,296 mcg-226 mg-90 mg (PreserVision AREDS) 1 cap PO BID Tobacco use date assessed: 05/10/25 Fall risk assessment: No Falls in past year Last assessed Fall Risk: 07/02/25 Dental Screening Dental Screen Date: 07/02/25 Did you have a dental visit in the last 12 months?: No Did you have a dental problem in the last 6 months where you did not have access to dental care?: No Was dental information given to patient?: Patient declined HPI 2 months follow up HPI Details Patient presents for the follow-up of osteoporosis. She has been taking Prolia the most recent injection in April and tolerating well. Patient has chronic right ankle pain was evaluated by ortho PA and was prescribed a brace to wear when walking longer distance. Patient reports no change in her pain. She denies joint swelling erythema warmth. PFSH Medical History (Updated 07/02/25 @ 15:36 by Cait Locke MD) Anxiety Osteoporosis Hyperglycemia Postmenopausal Vitamin D deficiency Vitreous detachment of right eye Lumbar spinal stenosis Knee pain, right COPD (chronic obstructive pulmonary disease) Chronic constipation Rectal bleed Hyperlipidemia Macular degeneration Goiter, nodular Osteopenia Nephrolithiasis Microscopic hematuria Spinal stenosis History of hiatal hernia Eye exam abnormal Surgical History H/O: knee surgery History of repair of hiatal hernia H/O colonoscopy S/P insertion of spinal cord stimulator History of bladder suspension procedure History of hysterectomy Hx of cholecystectomy Family History Father History of heart attack Stroke Mother Stroke Diabetes mellitus Maternal Grandmother Diabetes mellitus Maternal Grandfather Diabetes mellitus Social History Household Members: Spouse Housing: [facility] Are you a primary managed care coordinator to a significant other at home: No Do you presently have visiting nurse or other home services: No Alcohol intake: never Patient Tobacco Use Status: Former Tobacco user e-Cigarette/Vaping Use: Never Used Second Hand Smoke Exposure: No service: No Current occupational status: retired Current occupational exposures/hazards: No Cognitive needs: No Hearing needs: No Vision needs: No Questionnaire PHQ-9 Over the last 2 weeks, how often have you been bothered by any of the following problems? 1. Little interest or pleasure in doing things: not at all 2. Feeling down, depressed, or hopeless: not at all 3. Trouble falling or staying asleep, or sleeping too much: not at all 4. Feeling tired or having little energy: not at all 5. Poor appetite or overeating: not at all 6. Feeling bad about yourself - or that you are a failure or have let yourself or your family down: not at all 7. Trouble concentrating on things, such as reading the newspaper or watching television: not at all 8. Moving or speaking so slowly that other people could have noticed. Or the opposite - being so fidgety or restless that you have been moving around a lot more than usual: not at all 9. Thoughts that you would be better off or of hurting yourself in some way: not at all Total score: 0 Depression Screening Interpretation: Negative Depression Screening Done: Yes 78244 - PHQ-9 Billing: Yes Source: Developed by Drs. Konstantin Perea, Monserrat Mcneill, Costa Martinez and colleagues, with an educational tomasa from [employer]. Thrive Questionnaire Date Thrive assessed: 05/10/25 I am a: Patient What is your living situation today?: I have a place to live, but I am worried about losing it in the future Within the past 12 months, did the food you bought not last and you didn't have the money to get more?: Never true Within the past 12 months, did you worry whether your food would run out before you got money to buy more?: Never true Do you have trouble paying for medicines?: No Do you have trouble getting transportation to medical appointments?: No Do you have trouble paying your heating and electricity bill?: No Do you have trouble taking care of your child, family member or friend?: No Do you have trouble with day-to-day activities such as bathing, preparing meals, shopping, managing finances, etc.?: No Are you currently unemployed and looking for a job?: No Are you interested in more education?: No Please select the resources that you would like help with: None Currently or been in a relationship where the following occur: No concerns reported THRIVE Score: 1 AUDIT C Alcohol Use Questionnaire (AUDIT-C) 1. How often do you have a drink containing alcohol?: Never Total Score: 0 JOHN-7 AMB Questionnaire JOHN-7 Date JOHN - 7 assessed: 07/02/25 Feeling nervous, anxious, or on edge: 0 = Not at all Not being able to stop or control worryin = Not at all Worrying too much about different things: 0 = Not at all Trouble relaxin = Not at all Being so restless that it is hard to sit still: 0 = Not at all Becoming easily annoyed or irritable: 0 = Not at all Feeling afraid as if something awful might happen: 0 = Not at all Total JOHN-7 score (0-4 normal; 5-9 mild; 10-14 moderate; 15-21 severe): 0 Source: Developed by Monserrat MiltonW. Osito, Costa Martinez and colleagues, with an educational tomasa from [employer]. JOHN-7 Assessment Billing JOHN-7 Assessment Tool: JOHN-7 Assessment 88225 Review of Systems Const All systems reviewed & are unremarkable except as noted in HPI and below ENT Reports no additional complaints Card Reports no additional complaints Resp Reports no additional complaints GI Reports no additional complaints Reports no additional complaints Physical exam (Primary Care) Vital Signs: Last Vital Signs Pulse 86 07/02/25 11:35 Resp 16 07/02/25 11:35 BP 110/78 07/02/25 11:35 Pulse Ox 97 07/02/25 11:35 Oxygen Delivery Method Room Air 07/02/25 11:35 BMI result Body Mass Index 22.5 Tobacco/Smoking Status: Tobacco use Status Tobacco use date assessed 05/10/25 07/02/25 11:35 Patient Tobacco Use Status Former Tobacco user 07/02/25 11:35 e-Cigarette/Vaping Use Never Used 07/02/25 11:35 PHQ-9: PHQ-9 Score PHQ-9: Total score 0 07/02/25 13:43 Depression Screening Interpretation: Negative Thrive Assessment: Date of Thrive Assessment Date Thrive assessed 05/10/25 07/02/25 11:35 Currently or been in a relationship where the following occur: No concerns reported Const General: no acute distress HENMT Head: Yes normal to inspection Face and sinus: Yes normal facial exam Eyes General: appearance normal, both eyes and all related structures Resp Effort & Inspection: normal respiratory effort Auscultation: clear to auscultation bilaterally Cardio Rhythm: regular rhythm Heart sounds: S1 normal heart sound present and S2 normal heart sound present GI Inspection: Yes normal to inspection Palpation (GI): Soft to palpation Percussion: Yes normal to percussion Auscultation: normal bowel sounds Extrem Other: Right ankle with a full range of motion no soft tissue swelling plus a slight tenderness of the lateral aspect General: Yes no clubbing, cyanosis or edema Coding Level of Care Code Est Pt Level 4 (34213) Complex EM visit Add On G2211 Diagnoses Vitamin D deficiency E55.9 Hyperlipidemia E78.5 Anxiety F41.9 Osteoporosis M81.0 Additional Codes JOHN-7 Assessment Billing - JOHN-7 Assessment Tool: JOHN-7 Assessment 36865 ([id number]) PHQ-9 - 22035 - PHQ-9 Billing: Yes ([id number]) Assessment & Plan Assessment & Plan (1) Vitamin D deficiency: Code(s): E55.9 - Vitamin D deficiency, unspecified Category: Medical Plan: Continue vitamin-D supplement (2) Hyperlipidemia: Code(s): E78.5 - Hyperlipidemia, unspecified Category: Medical Plan: Continue low-cholesterol diet (3) Anxiety: Comment: Controlled on Zoloft Code(s): F41.9 - Anxiety disorder, unspecified Category: Medical Plan: cont Zoloft (4) Osteoporosis: Comment: DEXA 04/18 Fosamax tried, patient stopped because of stomach upset. Prolia started 04/2025 Code(s): M81.0 - Age-related osteoporosis without current pathological fracture Category: Medical Plan: Continue vitamin-D supplement weight-bearing exercises patient is due for Prolia inj in October Orders: Orders Vitamin D 25-OH Total Today E55.9 - Vitamin D deficiency, unspecified TSH reflex Free T4 4 Months E55.9 - Vitamin D deficiency, unspecified, E78.5 - Hyperlipidemia, unspecified, R73.9 - Hyperglycemia, unspecified Comprehensive [place]. Panel Fast 4 Months E55.9 - Vitamin D deficiency, unspecified, E78.5 - Hyperlipidemia, unspecified, R73.9 - Hyperglycemia, unspecified Complete Blood Count Auto Diff 4 Months E55.9 - Vitamin D deficiency, unspecified, E78.5 - Hyperlipidemia, unspecified, R73.9 - Hyperglycemia, unspecified Lipid Panel 4 Months E55.9 - Vitamin D deficiency, unspecified, E78.5 - Hyperlipidemia, unspecified, R73.9 - Hyperglycemia, unspecified Vitamin D 25-OH Total 4 Months E55.9 - Vitamin D deficiency, unspecified, E78.5 - Hyperlipidemia, unspecified, R73.9 - Hyperglycemia, unspecified
--- OUTSIDE RECORDS SUMMARY | 2025-07-02 12:25 | XMS_ITS | Clinical Summary ---
Author Organization [facility] Address [address] [address] Phone Care Team Providers Care Occupational Therapist Home Based Name Role Phone Cait Locke MD Primary Care Provider [phone] Allergies Active Allergy Reactions Criticality Noted Date Comments Acetaminophen Rash,Swelling Low 03/23/2018 Gabapentin Rash Low 03/23/2018 Other reaction(s): toungue swelling Levofloxacin Rash Low 03/23/2018 Other reaction(s): tongue swells Penicillins Anaphylaxis,Rash High 03/23/2018 Tetracycline Rash Low 03/23/2018 Other reaction(s): swelling face itching Vancomycin Rash Low 03/23/2018 Other reaction(s): swelling Medications mexiletine (MEXITIL) 150 MG capsule Take 150 mg by mouth 2 (two) times a day. 3 Active traMADoL (ULTRAM) 50 mg tablet [The details of the medication are not available because there are pending changes by a home health clinician.] 12 tablet 3 Active Additional Information Patient not taking.Reason: Therapy complete, Informant: Self, Reported on 11/24/2023 magnesium 200 mg tablet Take 200 mg by mouth daily. 3 Active hypromellose (TEARS LUBRICANT EYE DROP OPHT) Apply 1 drop in each eye to eye daily. 3 Active magnesium hydroxide (MILK OF MAGNESIA ORAL) Take 1 Dose by mouth daily as needed (constipation). 3 Active celecoxib (CELEBREX) 200 MG capsule Take 200 mg by mouth daily. 3 12/05/19 24 Discontin ued(No longer taking) apixaban (ELIQUIS) 2.5 mg Take 2.5 mg by mouth 2 (two) times a day. 3 12/05/19 24 Discontin ued(No longer taking) Active Problems No known active problems Social History Tobacco Use Types Packs/Day Years [...] on file Sexual Orientation Not on file Last Filed Vital Signs Vital Sign Reading Time Taken Comments Blood Pressure 118/60 12/01/2023 11:01 AM EST Pulse 82 12/01/2023 11:01 AM EST Temperature 36.6 C (97.8 F) 11/29/2023 12:38 PM EST Respiratory Rate 18 12/05/2023 10:48 AM EST Oxygen Saturation 96% 12/05/2023 10:48 AM EST Inhaled Oxygen Concentration - - Weight 54.4 kg (120 lb) 02/28/2023 12:12 PM EDT Height 157.5 cm (5' 2 ) 02/28/2023 12:12 PM EDT Body Mass Index 21.95 02/28/2023 12:12 PM EDT Plan of Treatment Health Maintenance Due Date Last Done Comments Adult Td,Tdap Booster 1945 DEPRESSION SCREENING 1955 ZOSTER VACCINES (1 of 2) 1993 OSTEOPOROSIS SCREENING INITI AL (ONE-TIME) 2008 PNEUMOCOCCAL VACCINES (50+ y ears) (2 of 2 - PCV) 10/07/2008 10/07/2007 RSV VACCINE (1 - 1-dose 75+ series) 2018 COVID-19 VACCINE ( - 2023-2 5 season) 2024 HEPATITIS A VACCINES Aged Out No long er eligible based on patient's age to complete this topic HIB VACCINES Aged Out No longer eligi ble based on patient's age to complete this topic MENINGOCOCCAL VACCINES (ACWY) Aged Out No longer eligible based on patient's age to complete this topic MENINGOCOCCAL VACCINES (B) Aged Out N o longer eligible based on patient's age to complete this topic Medical Devices Not on file Insurance [employer] H[employer] REPLACEMENT [employer] REPLACEMENT [employer] REPLACEMENT [employer] [place]PLACEMENT [employer] H[employer] REPLACEMENT [employer] H[employer] REPLACEMENT Care Teams Occupational Therapist Home Based Relationship Specialty Start Date End Date Cait Locke MD [address] [place] [address] PCP - General Internal Medicine 02/28/23 Additional Source Comments The information contained in this document represents components of the legal health record. It is not the complete legal health record.[facility]
== END 2025-07-02 12:29 | disposition home or self-care (01) ==
LOC: HO.HMCC 11:33
PROVIDERS: PCP Internal Medicine; Visit Provider Internal Medicine
DX: E55.9 Vitamin D deficiency, unspecified (principal); E78.5 Hyperlipidemia, unspecified; F41.9 Anxiety disorder, unspecified; M81.0 Age-related osteoporosis without current pathological fracture

== ENCOUNTER → 2025-07-02 11:32 | Outpatient (BNVA) | payer MEDICARE, SELFPAY | PROVIDERS: PCP Internal Medicine; Visit Provider Internal Medicine | DX: M81.0 Age-related osteoporosis without current pathological fracture (principal); M25.571 Pain in right ankle and joints of right foot; E55.9 Vitamin D deficiency, unspecified; E78.5 Hyperlipidemia, unspecified; F41.9 Anxiety disorder, unspecified | CPT/HCPCS: 96127; 99212 ==

== ENCOUNTER 2025-10-03 08:00 | Outpatient (AMB) | payer MEDICARE, SELFPAY ==
--- OUTSIDE RECORDS SUMMARY | 2023-02-28 11:36 | XMS_ITS | Encounter Summary ---
Author Organization [facility] Address [address] [place] [phone] Phone Care Team Providers Care Cargo Vessel Stewardess Name Role Phone Cait Locke MD Primary Care Provider [phone] Encounter Details Date Type Department Care Team (Late st Contact Info) Description 02/28/2023 12:36 PM EDT Hospital Encounter Urgent Care [address] [place] [id number] Evelyn Mojica FNP [address] [place] [id number] [email or web address] Social History Tobacco Use Types Packs/Day Years Used Date Smoking Tobacco: Never Smokeless Tobacco: Never Home Health Assessment: Transportation Answer Date Recorded Lack of Transportation (Medical) No 12/08/2023 Lack of Transportation (Non-Medical) No 12/08/2023 Patient Unable or Declines to Respond No 12/08/2023 Education Answer Date Recorded Are you interested in more education? Not on cruz e 03/26/2023 Are you concerned about learning? Not on file 03/26/2023 No 03/26/2023 No 03/26/2023 Digital Access Answer Date Recorded No 04/24/2023 No 04/24/2023 No 04/24/2023 Reliable internet access at home? Not on file 04/24/2023 Device with a working camera? Not on file Comments Unknown Sex and Gender Information Value Date Recorded Sex Assigned at Not on file Legal Sex Female 10:27 AM EDT Gender Identity Not on file Sexual Orientation Not on file documented as of this encounter Plan of Treatment Not on file documented as of this encounter Procedures Procedure Name Priority Date/Time Associated Diagnosis Comments XR LUMBOSACRAL SPINE 2-3 VIEWS Urgent/patient waiting 02/28/2023 12:45 PM EDT Severe low back pain documented in this encounter Results * XR LUMBOSACRAL SPINE 2-3 VIEWS (02/28/2023 12:45 PM EDT) Anatomical Region Laterality Modality L-spine Computed Radiogr aphy 02/28/2023 1:06 PM EDT Impressions 02/28/2023 1:08 PM EDT 1. Age-indeterminate compression fracture of T12 with approximately 40% anterior height loss. 2. Grade 2 anterolisthesis of L5 on S1. Narrative 02/28/2023 1:08 PM EDT XR LUMBOSACRAL SPINE 2-3 VIEWS COMPARISON: None. FINDINGS: Anterior subluxation of L5 on S1 measuring 11 mm, grade 2. Slight retrolisthesis of L1 on L2 and L2 on L3. Anterior wedging of the T12 vertebral body with approximately 40% anterior height loss. Posterior generator and stimulator leads the sacrum appears intact, but visualization is limited due to overlying structures. Procedure Note Cliff Dunn MD - 02/28/2023 XR LUMBOSACRAL SPINE 2-3 VIEWS COMPARISON: None. FINDINGS: Anterior subluxation of L5 on S1 measuring 11 mm, grade 2. Slightretrolisthesis of L1 on L2 and L2 on L3. Anterior wedging of the [id number] body with approximately 40% anterior height loss. Posteriorgenerator and stimulator leads the sacrum appears intact, butvisualization is limited due to overlying structures. IMPRESSION: 1. Age-indeterminate compression fracture of T12 with approximately 40%anterior height loss. 2. Grade 2 anterolisthesis of L5 on S1. Evelyn Mojica [facility] MANAGER IMG XR SPINE Final Resul t documented in this encounter Visit Diagnoses Not on filedocumented in this encounter Care Teams Cargo Vessel Stewardess Relationship Specialty Start Date End Date Cait Locke MD [facility] [place] [address] PCP - General Internal Medicine 02/28/23 documented as of this encounter Additional Source Comments The information contained in this document represents components of the legal health record. It is not the complete legal health record.[facility]
--- OUTSIDE RECORDS SUMMARY | 2025-07-30 04:30 | XMS_ITS ---
Author Organization [facility] Address [address] [place] [address] Care Team Providers Care Water Pollution Control Inspector Name Role Phone Chucky JULIAN, Cait Primary Care Provider Unavaila John Madrigal Unavailable [phone] Encounters Encounter Location Date Provider Diagnosis [facility] [address] [place] [address] 07/30/2025 John Banuelos Plan Of Treatment No Information Progress Notes * Rissa AGGARWALDOB: 3 (80 yo F)Acc No.[id number]:07/30/2025 Progress Notes Patient: Rissa DELGADO Provider: Toma Banuelos DPM :1945 A ge:80 Y S ex:Female Date:07/30/2025 Address:[address] [place], [place] [id number] Pcp:Cait Locke MD Subjective: * Chief Complaints: * * Medical History: Objective: * Vitals: Assessment: Plan: * Treatment: * Images: * The named appointment provid er may or may not be the originator of this progress note, and it is not deemed complete until electronically signed by the appointment provider. Sign off status: Pending * Provider: Toma Banuelos DPM Date: 0 07/30/2025 Generated for Shawnee bai/Felipe/Ollieitting on: 12/03/2024 08:08 AM EST
--- NOTE | 2025-10-03 08:09 | AM.OFFWIN_ITS ---
Intake Vital Signs 10/03/25 08:11 Height 5 ft 2 in Weight 126 lb BMI 23.0 BP 122/78 Blood Pressure Location Lt brachial Position Sitting Respiration 16 Pulse 78 Pulse Source Pulse Oximeter Temp 98.1 F Temp Source Oral Pulse Oximetry (%) 98 Oxygen Delivery Method Room Air Intake Visit Reasons: EP-chest congestion, tiredness Intake Note: Pt is here today c/o chest congestion and fatigue x5days Patient Tobacco Use Status: Former Tobacco user Allergies acetaminophen (From Tylenol) Allergy (Severe, Verified 10/03/25 08:11) ANAPHYLAXIS gabapentin (GABAPENTIN) Allergy (Severe, Verified 10/03/25 08:11) ANAPHYLAXIS levofloxacin (From Levaquin) Allergy (Severe, Verified 10/03/25 08:11) ANAPHYLAXIS Penicillins Allergy (Severe, Verified 10/03/25 08:11) ANAPHYLAXIS tetracycline (Tetracycline) Allergy (Severe, Verified 10/03/25 08:11) ANAPHYLAXIS vancomycin (Vancomycin) Adverse Reaction (Severe, Verified 10/03/25 08:11) Anaphylaxis alendronate sodium (From Fosamax) Adverse Reaction (Intermediate, Verified 10/03/25 08:11) Abdominal Pain HPI HPI Comments History of Present Illness Details History - The patient is an 80-year-old female p resenting with chest pressure, cough, and chills. - Symptoms have persisted for four to fi ve days, with no fever, runny nose, sore throat, or ear pain reported. - She has been feeling run down and tire d. - She has been eating her usual one meal a day. - She denies congestion, SANCHEZ, CP, SOB, ab d pain, or n/v/d. - She has no sick contacts or recent tra fransisca. Physical Exam General: Cooperative, healthy appearing, comfortable and no acute distress Orientation/consciousness: Patient oriented x3 Limitations: No limitations Head: Normal to inspection Ears: Hearing grossly normal bilaterally, external ears normal and TM's normal bilaterally Nose: Normal external nose present, normal nares present, and no nasal discharge present. Face and sinus: Sinuses nontender to palpation. Mouth: Normal oral and palatal mucosa present and moist mucous membranes noted. Throat: Tonsils normal. Uvula is midline. Posterior oropharynx with erythema and no exudates. Eyes: Appearance normal, both eyes and all related structures Neck: Normal visual inspection, full ROM. No lymphadenopathy noted. Respiratory: Clear to auscultation bilaterally. Normal respiratory effort, able to speak in complete sentences. No respiratory distress, not tachypneic, no tripod positioning and no use of accessory muscles. Cardiovascular: Regular rate and rhythm. Normal S1 and S2 Skin: No rashes or lesions noted. Patient was informed and verbally consented to the use of an ambient scribe for clinic note documentation during this visit [facility] Medical History (Updated 07/02/25 @ 15:36 by Cait Locke MD) Anxiety Osteoporosis Hyperglycemia Postmenopausal Vitamin D deficiency Vitreous detachment of right eye Lumbar spinal stenosis Knee pain, right COPD (chronic obstructive pulmonary disease) Chronic constipation Rectal bleed Hyperlipidemia Macular degeneration Goiter, nodular Osteopenia Nephrolithiasis Microscopic hematuria Spinal stenosis History of hiatal hernia Eye exam abnormal Surgical History H/O: knee surgery History of repair of hiatal hernia H/O colonoscopy S/P insertion of spinal cord stimulator History of bladder suspension procedure History of hysterectomy Hx of cholecystectomy Family History Father History of heart attack Stroke Mother Stroke Diabetes mellitus Maternal Grandmother Diabetes mellitus Maternal Grandfather Diabetes mellitus Social History Household Members: Spouse Housing: [facility] Are you a primary palliative care coordinator to a significant other at home: No Do you presently have visiting nurse or other home services: No Alcohol intake: never Patient Tobacco Use Status: Former Tobacco user e-Cigarette/Vaping Use: Never Used Second Hand Smoke Exposure: No service: No Current occupational status: retired Current occupational exposures/hazards: No Cognitive needs: No Hearing needs: No Vision needs: No Review of Systems Const All systems reviewed & are unremarkable except as noted in HPI and below Physical Exam Vital Signs: Last Vital Signs Temp 98.1 F 10/03/25 08:11 Pulse 78 10/03/25 08:11 Resp 16 10/03/25 08:11 BP 122/78 10/03/25 08:11 Pulse Ox 98 10/03/25 08:11 Oxygen Delivery Method Room Air 10/03/25 08:11 BMI result Body Mass Index 23.0 Results Reviewed Results Reviewed: will review her CXR in the office Assessment & Plan Assessment & Plan (1) Cough: Code(s): R05.9 - Cough, unspecified Qualifiers: Cough type: acute Qualified Code(s): R05.1 - Acute cough Plan Most likely URI vs covid vs RSV vs flu vs viral illness plan - A chest x-ray is planned to exclude pneumonia. - Management will be adjusted based on the x-ray results. - will order a resp swab - tylenol or motrin as needed for pain or fever - tessalon perles as needed for cough - follow up with PCP Orders: Orders SARS-CoV2/FLU/RSV Today R09.89 - Other specified symptoms and signs involving the circulatory and respiratory systems XR chest 2V Today R05.9 - Cough, unspecified Medications: New benzonatate 100 mg PO bid-tid PRN 21 caps 0RF Cough 7 days Coding Level of Care Code Est Pt Level 4 (19424) Diagnoses Acute cough R05.1 Cough type: acute
--- OUTSIDE RECORDS SUMMARY | 2025-10-03 08:09 | XMS_ITS | Patient Health Record ---
Author Organization [facility] Address [address] [place] [address] Care Team Providers Care Programmer Or Analyst Name Role Phone Cait Locke MD Primary Care Provider Unavaila John Madrigal [phone] Reason For Referral No Information Encounters Encounter Location Date Provider Diagnosis [facility] [address] [place] [address] 07/23/2025 John Banuelos [facility] [address] [place] [address] 07/23/2025 John Banuelos Plan Of Treatment No Information Insurance Providers Payer Name Payer Address Payer Phone Subscriber Number Group Number Insured Name Patient Relationship to Insured Coverage Start Date Coverage End Date [employer]age [address] [place] [address] [phone] [id number] Rissa Nguyen Self - patient is the insured
--- OUTSIDE RECORDS SUMMARY | 2025-10-03 08:09 | XMS_ITS | Clinical Summary ---
Author Organization [facility] Address [address] [address] Phone Care Team Providers Care Used Car Sales Manager Name Role Phone Cait Locke MD Primary Care Provider [phone] Allergies Active Allergy Reactions Criticality Noted Date [...] VACCINE (1 - 1-dose 75+ series) 2018 INFLUENZA VACCINE (#1) 2025 10/07/2007 COVID-19 VACCINE ( - 2024-2 6 season) 2025 HEPATITIS A VACCINES Aged Out No long [...] REPLACEMENT [employer] MEDIC[employer] HMO REPLACEMENT [address] [place] [address] MEDICARE HMO REPLACEMENT [employer] HMO REPLACEMENT MEDICARE HMO REPLACEMENT Care Teams Used Car Sales Manager Relationship Specialty Start Date End Date Cait Locke MD [place] [address] PCP - General Internal Medicine 02/28/23 Additional Source Comments The information contained in this document represents components of the legal health record. It is not the complete legal health record.[facility]
--- OUTSIDE RECORDS SUMMARY | 2025-10-03 08:09 | XMS_ITS | Clinical Summary ---
Author Organization [facility] Address [address] [place] [address] Care Team Providers Care Test And Turn Up Technician Name Role Phone Mccurtain-Natividad Lambert MD Primary Care Provider Allergies Active [...] - 1-dose 75+ series) 2018 Influenza Vaccine (#1) 2025 Hepatitis B Vaccines Aged Out No long er eligible based on patient's age to complete this topic RSV Ped < 20 months Aged Out No longe r eligible based on patient's age to complete this topic Care Teams Test And Turn Up Technician Relationship Specialty Start Date End Date Mccurtain-Natividad Lambert MD PCP - General Internal Medicine 03/23/18
[2025-10-03 08:11] VITALS: BP 122/78; PULSE 78; RESP 16; TEMP 36.7; O2SAT 98; BMI 23.0
== END 2025-10-03 08:47 | disposition home or self-care (01) ==
PROVIDERS: PCP Internal Medicine; Visit Provider Physician Assistant Medical
DX: R05.1 Acute cough (principal)

== ENCOUNTER 2025-10-03 08:00 | Outpatient (REF) | payer MEDICARE, SELFPAY ==
--- NOTE | ~2025-10-03 | XR_ITS ---
EXAMINATION: XR CHEST CLINICAL INFORMATION: R05.9 - Cough, unspecified COMPARISON: 07/23/2019, 05/01/2018. TECHNIQUE: 2 views of the chest were obtained. FINDINGS: The cardiac, hilar, and mediastinal contours are normal. Mild aortic mural calcification and uncoiling. Lungs are diffusely hyperaerated, with flattened hemidiaphragms, suggestive of COPD. Lungs otherwise clear. There is no pneumothorax or pleural effusion. Old right rib fractures noted. There is a stable compression deformity in the lower thoracic spine. There are degenerative changes throughout the spine. There is a thoracic neurostimulator device in place with leads terminating in the dorsal epidural space at T8-T9. XR/XR chest 2V IMPRESSION: 1. Findings suggesting COPD. No definite active superimposed disease. Electronically signed by: Malcolm Eastman MD 10/03/2025 08:59 AM VALERIY
[2025-10-03 12:54] LABS: Resp Syncy Virus RNA Qual PCR NEGATIVE (Negative); SARS COV2 PCR INHOUSE NEGATIVE (Negative)
== END 2025-10-03 08:01 | disposition home or self-care (01) ==
LOC: HO.HMGCX 08:00
PROVIDERS: PCP Internal Medicine; Visit Provider Physician Assistant Medical
DX: R05.1 Acute cough (principal); R09.89 Other specified symptoms and signs involving the circulatory and respiratory systems; Z87.891 Personal history of nicotine dependence
CPT/HCPCS: 71046; 87637; 99212

== ENCOUNTER → 2025-10-03 08:39 | Outpatient (BNV) | payer MEDICARE, SELFPAY | PROVIDERS: PCP Internal Medicine; Visit Provider Radiology Diagnostic Radiology | DX: R05.9 Cough, unspecified (principal) | CPT/HCPCS: 71046 ==